=== PATIENT | male | born 1925 | race Caucasian/White ===

== ENCOUNTER → 2016-06-16 | Outpatient (CLI) | payer MEDICARE, OTHER ==
[~2016-06-16] MED LIST: APIX2.5T PO; CARV12.5 PO; CARV25TA PO; ESZO1TAB PO; ESZO2 PO; FISH1000 PO; FLOV110A INH; FURO1TAB93 PO; FURO20TA PO; ISOS20TA PO; LOSA25TA PO; LOSA50 PO; OCUVTAB4 PO; PRAV10 PO; PRAV10TA PO; PRESCAP5 PO; RIVA15 PO; SPIR25 PO; TAMS0.4C4 PO; UMEC1AER INH
[2016-06-16 12:39] LABS: POTASSIUM 4.7 MEQ/L (3.5-5.1)
== END ==
LOC: CLAB 11:47
PROVIDERS: ATTEND Internal Medicine Cardiovascular Disease
DX: I50.9 Heart failure, unspecified (principal)
CPT/HCPCS: 36415; 80048

== ENCOUNTER → 2016-06-30 | Outpatient (CLI) | payer MEDICARE, OTHER ==
[~2016-06-30] MED LIST changes: +SODIUM BICARBONATE 8.4% INJ 50 MEQ/50 ML SYR IV ONE
[2016-06-30 10:24] LABS: HEMATOCRIT 52.2 % (39.0-51.0); HEMO FLAGS DIFF FINAL; MEAN CELL VOLUME 92.9 FL (80.0-100.0); MEAN CORPUSCULAR HEMOGLOBIN 31.4 PG (27.0-34.0); MEAN CORPUSCULAR HGB CONC 33.8 % (32.0-36.0); PLATELET COUNT 148 TH/MM3 (150-450); RED BLOOD COUNT 5.61 MIL/MM3 (4.50-5.90); RED CELL DISTRIBUTION WIDTH 16.3 % (11.6-17.2); WHITE BLOOD COUNT 5.8 TH/MM3 (4.0-11.0)
[2016-06-30 10:25] LABS: AUTOMATED NEUTROPHIL # 3.6 TH/MM3 (1.8-7.7); BASOPHIL # 0.1 TH/MM3 (0-0.2); BASOPHIL % 1.4 % (0.0-2.0); EOSINOPHIL # 0.3 TH/MM3 (0-0.4); EOSINOPHIL % 5.2 % (0.0-4.0); LYMPH % 17.3 % (9.0-44.0); MONO % 14.1 % (0.0-8.0)
[2016-06-30 10:29] LABS: BLOOD, URINE NEG (NEG); GLUCOSE,URINE NEG (NEG); KETONE, URINE NEG (NEG); NITRITE,URINE NEG (NEG); PH, URINE 5.5 (5.0-8.5); URINE COLOR YELLOW (YELLW/STRAW)
[2016-06-30 10:35] LABS: COMMENT (UR) CULT NOT INDICATED; CULTURE IF INDICATED CULT NOT INDICATED
[2016-06-30 10:54] LABS: ANION GAP 8 MEQ/L (5-15); AST (GOT) 14 U/L (15-37); BLOOD UREA NITROGEN 55 MG/DL (7-18); CHLORIDE 106 MEQ/L (98-107); GLOMERULAR FILTRATION RATE 37 ML/MIN (>89); GLUCOSE,FASTING 96 MG/DL (74-99); POTASSIUM 5.2 MEQ/L (3.5-5.1); SODIUM (NA) 140 MEQ/L (136-145)
[2016-06-30 11:21] LABS: ALKALINE PHOSPHATASE 174 U/L (45-117); ALT (GPT) 24 U/L (12-78); LDL CHOLESTEROL 88 MG/DL (0-99)
[2016-06-30 13:34] LABS: HEMOGLOBIN A1a 1.7 %; HEMOGLOBIN A1b 1.1 %; HEMOGLOBIN Ao 79.3 %; HEMOGLOBIN F 2.9 %; HEMOGLOBIN LA1C 2.6 %; HEMOGLOBIN P3 7.1 %
== END ==
LOC: CLAB 10:01
PROVIDERS: ATTEND Internal Medicine
DX: I10 Essential (primary) hypertension (principal); R73.01 Impaired fasting glucose; E53.8 Deficiency of other specified B group vitamins; E55.9 Vitamin D deficiency, unspecified
CPT/HCPCS: 36415; 80053; 80061; 81001; 82306; 82607; 83036; 84443; 85025

== ENCOUNTER 2016-07-06 13:06 | Inpatient (IN) | payer OTHER, MEDICARE ==
[~2016-07-06] VITALS: Ht 177.8 cm; Wt 90.2 kg
[2016-07-06 13:02] VITALS: O2SAT 94
[~2016-07-06 13:06] MED LIST changes: -APIX2.5T PO; -CARV25TA PO; -ESZO1TAB PO; -FURO20TA PO; -ISOS20TA PO; -LOSA25TA PO; -OCUVTAB4 PO; -PRAV10TA PO; -SODIUM BICARBONATE 8.4% INJ 50 MEQ/50 ML SYR IV ONE; -TAMS0.4C4 PO
[2016-07-06] MEDS ORDERED: MORPHINE SULFATE 8 MG/ML INJ ONE (13:18)
[2016-07-06] MEDS ORDERED: ONDANSETRON HCL 4 MG/2 ML VIAL ONE (13:19)
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
[2016-07-06 13:31] LABS: I-STAT POTASSIUM 5.1 MMOL/L (3.5-4.9)
[2016-07-06 13:32] LABS: AUTOMATED NEUTROPHIL # 4.1 TH/MM3 (1.8-7.7); BASOPHIL # 0.1 TH/MM3 (0-0.2); BASOPHIL % 1.6 % (0.0-2.0); EOSINOPHIL # 0.4 TH/MM3 (0-0.4); HEMATOCRIT 46.3 % (39.0-51.0); HEMO FLAGS DIFF FINAL; LYMPHOCYTE # 1.4 TH/MM3 (1.0-4.8); MEAN CELL VOLUME 92.6 FL (80.0-100.0); MEAN CORPUSCULAR HEMOGLOBIN 31.6 PG (27.0-34.0); MEAN CORPUSCULAR HGB CONC 34.1 % (32.0-36.0); MONO % 15.4 % (0.0-8.0); PLATELET COUNT 151 TH/MM3 (150-450); RED CELL DISTRIBUTION WIDTH 15.9 % (11.6-17.2)
[2016-07-06 13:41] LABS: APTT (PATIENT) 23.1 SEC (24.3-30.1); INTERNATIONAL NORMALIZED RATIO 1.1 RATIO; PROTHROMBIN TIME - PATIENT 11.9 SEC (9.8-11.6)
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
[2016-07-06] MEDS: SODIUM CHLOR 0.9% 1000 ML INJ 1,000 ML IV SCH (14:29)
[2016-07-06] MEDS ORDERED: NALOXONE HCL 0.4 MG/ML AMP IV PRN (14:30)
[2016-07-06] MEDS ORDERED: oxyCODONE/ACETAMINOPHEN 5 MG/325 MG TAB PO PRN (14:30)
[2016-07-06] MEDS ORDERED: SODIUM CHLORIDE 0.9% FLUSH 5 ML FLUSH IVF PRN (14:30)
[2016-07-06] MEDS ORDERED: Post-op Orders (for Pharmacy) MISC XX ONE (14:30)
[2016-07-06] MEDS: HYDROmorphone HCL PF 1 MG/ML VIAL IV PRN ×3 (14:50→21:20)
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
[2016-07-06] MEDS: CARVEDILOL 12.5 MG TAB PO SCH ×2 (15:00→20:50)
[2016-07-06] MEDS ORDERED: PANTOPRAZOLE SOD 40 MG DELAYED RELEASE TAB PO SCH (15:00)
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
[2016-07-06 16:00] VITALS: BP 114/50; PULSE 67; RESP 40; TEMP 96.1; O2SAT 97
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
[2016-07-06] MEDS ORDERED: PANTOPRAZOLE SODIUM 40 MG VIAL IV PUSH SCH (17:00)
[2016-07-06] MEDS ORDERED: LIDOCAINE HCL 2% 100 MG/5 ML SYRINGE ONE (17:28)
[2016-07-06] MEDS ORDERED: EPINEPHrine HCL (1:10,000) 1 MG/10 ML SYRINGE ONE (17:28)
[2016-07-06] MEDS ORDERED: ATROPINE SULFATE 1 MG/10 ML SYRINGE ONE (17:29)
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
[2016-07-06 18:35] VITALS: PULSE 70; RESP 18; O2SAT 94
--- NOTE | 2016-07-06 18:41 | RADRPT ---
EXAM DATE/TIME: 07/06/2016 18:06 [facility] COMPARISON: CT THORACIC SPINE W/O CONTRAST, July 06, 2016, 13:27. INDICATIONS : Trauma. MEDICAL HISTORY : Hypertension. Renal insufficiency. SURGICAL HISTORY : Achilles tendon surgery. ENCOUNTER: Initial ACUITY: 1 day PAIN SCORE: 10/10 LOCATION: Bilateral upper quadrant TECHNIQUE: Multiplanar multisequence MRI of the thoracic spine was performed. FINDINGS: There is mild to moderate dextroconvex curvature of the thoracic spine. No fracture or subluxation. T here are bridging syndesmophytes spanning all intervertebral disc space levels except for T1/T2.. No evidence of syndesmophyte fracture. At T1/T2, the disc is slightly desiccated and has mild loss of he ight. There is also mild reactive-appearing endplate marrow edema. There is mild costovertebral osteoarthritis at essentially all levels. No evidence of foraminal or spinal stenosis at any level. CONCLUSION: 1. No fracture or subluxation of the thoracic spine. 2. Mild degenerative disc disease with reactive-appearing endplate marrow edema at T1/T2. 3. Bridging syndesmophytes from T2/T3 through T12/L1 and mild dextroconvex scoliosis. 4. Mild multilevel costovertebral osteoarthritis. 5. No significant foraminal or spinal stenosis at level. Thoracic cord has normal signal and morpholo gy throughout. Dallas Rios MD on July 06, 2016 at 18:36 Board Certified Radiologist. This report was verified electronically.
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
--- NOTE | 2016-07-06 19:18 | RADRPT ---
EXAM DATE/TIME: 07/06/2016 18:06 [facility] COMPARISON: No previous studies available for comparison. INDICATIONS : Trauma. MEDICAL HISTORY : Hypertension. Renal insufficiency. SURGICAL HISTORY : Achilles tendon surgery. ENCOUNTER: Initial ACUITY: 1 day PAIN SCORE: 10/10 LOCATION: Bilateral neck region. TECHNIQUE: Multiplanar, multisequence MRI examination of the brachial plexus was performed without contrast. FINDINGS: SOFT TISSUES: There is normal signal in the muscular and fatty tissues. No masses are seen. LUNGS: The visualized pulmonary apex is unremarkable. NEUROVASCULAR: The vascular structures of the supraclavicular region are grossly intact. The visualized structures in the region of the brachial plexus nerve roots and trunks are intact without mass or enlargement. BONY STRUCTURES: Please refer to the MRI of the cervical spine which was also just done. This study shows large, presu mably chronic appearing effusions of both sternoclavicular joints. CONCLUSION: No acute abnormality seen of the brachial plexus distal to the roots. There is bilateral foraminal st enosis of the cervical spine from C3/C4 through C6/C7 and please refer to the MRI of the cervical spi ne report which also shows a focal cervical cord contusion at the level of C3/C4 related to an appare nt recent hyperextension injury. Dallas Rios MD on July 06, 2016 at 19:12 Board Certified Radiologist. This report was verified electronically.
--- NOTE | 2016-07-06 19:31 | RADRPT ---
EXAM DATE/TIME: 07/06/2016 18:06 [facility] COMPARISON: MRI CERVICAL SPINE W/O CONTRAST, July 06, 2016, 18:06. MRI BRACHIAL PLEXUS LEFT W/O CONTRAST, [facility] 2016, 18:06. CT LUMBAR SPINE W/O CONTRAST, July 06, 2016, 13:27. CT CERVICAL SPINE W /O CONTRAST, July 06, 2016, 13:25. INDICATIONS : Trauma. MEDICAL HISTORY : Hypertension. Renal insufficiency. SURGICAL HISTORY : Achilles tendon ENCOUNTER: Initial ACUITY: 1 day PAIN SCORE: 10/10 LOCATION: Bilateral neck region. TECHNIQUE: Multiplanar, multisequence MRI examination of the brachial plexus was performed without contrast. FINDINGS: There is degenerative right foraminal stenosis at C3/C4, C4/C5, C5/C6 and C6/C7. There is reactive ap pearing marrow edema of the right facets at C4/C5 and C5/C6. No epidural hematoma. Patient has anteri or longitudinal ligament disruption and a focal cervical cord contusion at the C3/C4 level and please refer to the MRI of the cervical spine report. Trunks, divisions, cords and visualized branches of the right brachial plexus appear normal. CONCLUSION: Distal to the cervical spine the right brachial plexus is within normal limits. Please see above and refer to the MRI report for cervical spine findings. Dallas Rios MD on July 06, 2016 at 19:25 Board Certified Radiologist. This report was verified electronically.
[2016-07-06 20:00] VITALS: BP 107/51; PULSE 78; RESP 33; TEMP 98.9; O2SAT 94
[2016-07-06] MEDS ORDERED: OCUVTAB4 PO (20:40)
[2016-07-06] MEDS ORDERED: FURO20TA PO (20:40)
[2016-07-06] MEDS ORDERED: ISOS20TA PO (20:40)
[2016-07-06] MEDS ORDERED: ESZO1TAB PO (20:42)
[2016-07-06] MEDS ORDERED: CARV25TA PO (20:42)
[2016-07-06] MEDS ORDERED: PRAV10TA PO (20:42)
[2016-07-06] MEDS ORDERED: LOSA25TA PO (20:42)
[2016-07-06] MEDS ORDERED: TAMS0.4C4 PO (20:42)
[2016-07-06] MEDS ORDERED: APIX2.5T PO (20:42)
[2016-07-06] MEDS ORDERED: DOCUSATE SODIUM 100 MG CAP PO SCH (21:00)
[2016-07-06] MEDS: MAGNESIUM HYDROXIDE SUSP 30 ML CUP PO SCH ×2 (21:00→21:05)
[2016-07-06] MEDS: SODIUM CHLORIDE 0.9% FLUSH 5 ML FLUSH IVF SCH (21:00)
[2016-07-06] MEDS: FAMOTIDINE 20 MG TAB PO SCH (21:05)
[2016-07-06] MEDS ORDERED: diphenhydrAMINE HCL 50 MG/ML VIAL IV ONE (23:00)
[2016-07-07] VITALS (14 sets, daily range): BP systolic 107–140; BP diastolic 36–63; PULSE 66–90; RESP 16–24; TEMP 98.3–98.8; O2SAT 93–98
[2016-07-07] MEDS: SODIUM CHLOR 0.9% 1000 ML INJ 1,000 ML IV SCH ×3 (00:29→20:29)
[2016-07-07] MEDS: HYDROmorphone HCL PF 1 MG/ML VIAL IV PRN (04:51)
[2016-07-07 05:51] LABS: HEMATOCRIT 44.8 % (39.0-51.0); MEAN CELL VOLUME 94.3 FL (80.0-100.0); MEAN CORPUSCULAR HEMOGLOBIN 31.5 PG (27.0-34.0); MEAN CORPUSCULAR HGB CONC 33.4 % (32.0-36.0); PLATELET COUNT 123 TH/MM3 (150-450); RED BLOOD COUNT 4.74 MIL/MM3 (4.50-5.90); RED CELL DISTRIBUTION WIDTH 15.9 % (11.6-17.2); REVIEW FLAG FINAL; WHITE BLOOD COUNT 9.7 TH/MM3 (4.0-11.0)
[2016-07-07 05:53] LABS: BICARBONATE 24.3 MEQ/L (21.0-32.0); MAGNESIUM 2.1 MG/DL (1.5-2.5); POTASSIUM 5.3 MEQ/L (3.5-5.1)
[2016-07-07] MEDS: ISOSORBIDE MONONITRATE 30 MG TAB PO SCH (07:00)
[2016-07-07] MEDS ORDERED: VANCOMYCIN HCL 1000 MG VIAL ONE (07:14)
[2016-07-07] MEDS ORDERED: MICROFIBRILLAR COLLAGEN HEMOSTAT 70 X 35 MM BANDAGE ONE (07:14)
[2016-07-07] MEDS ORDERED: ceFAZolin 2 GM PREMIX 50 ML ONE (07:14)
[2016-07-07] MEDS ORDERED: THROMBIN (TOPICAL) 5,000 UNIT VIAL ONE (07:14)
[2016-07-07] MEDS ORDERED: SODIUM CHLOR 0.9% 250 ML INJ 250 ML ONE (07:15)
[2016-07-07] MEDS ORDERED: GENTAMICIN SULFATE 80 MG/2 ML VIAL ONE (07:15)
[2016-07-07] MEDS ORDERED: GELFOAM SIZE 100 ONE (07:15)
[2016-07-07] MEDS: TAMSULOSIN HCL 0.4 MG CAP PO SCH (08:31)
[2016-07-07] MEDS: SODIUM CHLORIDE 0.9% FLUSH 5 ML FLUSH IVF SCH (08:31)
[2016-07-07] MEDS: PRAVASTATIN SOD 10 MG TAB PO SCH (08:32)
[2016-07-07] MEDS ORDERED: LOSARTAN 25 MG TAB PO SCH (09:00)
[2016-07-07] MEDS: CARVEDILOL 12.5 MG TAB PO SCH ×3 (09:00→22:04)
[2016-07-07] MEDS ORDERED: DOCUSATE SODIUM 50 MG/SENNA 8.6 MG TAB PO SCH (09:00)
[2016-07-07] MEDS ORDERED: FUROSEMIDE 20 MG TAB PO SCH (09:00)
[2016-07-07] MEDS ORDERED: PROTHROMBIN COMPLEX CONC INJ 2,000 UNITS in SYRINGE/BAG 1 EA IV ONE (09:30)
[2016-07-07] MEDS ORDERED: PHYTONADIONE 10 MG/ML VIAL SQ ONE (09:30)
[2016-07-07] MEDS ORDERED: ARTIFICIAL TEARS OPTH OINT 3.5 APPLIC/3.5 GM TUBO ONE (11:14)
[2016-07-07] MEDS ORDERED: ACETAMINOPHEN 1000 MG/100 ML VIAL IV ONE (11:14)
[2016-07-07] MEDS ORDERED: BISACODYL 10 MG SUPP PR PRN (11:30)
[2016-07-07] MEDS ORDERED: ACETAMINOPHEN 325 MG TAB PO PRN (11:30)
[2016-07-07] MEDS ORDERED: ACETAMINOPHEN/HYDROcodone 325 MG/10 MG TAB PO PRN ×2 (11:30)
[2016-07-07] MEDS ORDERED: ONDANSETRON HCL 4 MG/2 ML VIAL IV PRN (11:30)
[2016-07-07] MEDS ORDERED: SODIUM CHLORIDE 0.9% FLUSH 5 ML FLUSH IVF PRN (11:30)
[2016-07-07] MEDS ORDERED: MENTHOL LOZENGE SUCK-ON PRN (11:30)
[2016-07-07] MEDS ORDERED: CYCLOBENZAPRINE HCL 10 MG TAB PO PRN (11:30)
[2016-07-07] MEDS ORDERED: ONDANSETRON HCL 4 MG/2 ML VIAL IV PUSH ONE (12:00)
[2016-07-07] MEDS ORDERED: PHENYLEPH/NS 1000 MCG/10 ML SYR IV ONE ×2 (12:00)
[2016-07-07] MEDS ORDERED: PHENYLEPHRINE HCL 10 MG/ML VIAL IV ONE (12:00)
[2016-07-07] MEDS ORDERED: PROPOFOL 200 MG/20 ML AMP IV ONE (12:00)
[2016-07-07] MEDS: DEXAMETHASONE SOD PHOS 4 MG/ML VIAL IV SCH ×3 (12:00→23:21)
[2016-07-07] MEDS ORDERED: NEOSTIGMINE 3 MG/3 ML SYR IV ONE (12:00)
[2016-07-07] MEDS ORDERED: SODIUM CHLOR 0.9% 250 ML INJ 250 ML IV ONE (12:00)
[2016-07-07] MEDS ORDERED: KETAMINE HCL 500 MG/5 ML VIAL ONE (12:37)
--- NOTE | 2016-07-07 13:45 | EKG ---
Date Performed: 07/06/2016 Time Performed: 20:45:19 PTAGE: 89 years EKG: ATRIAL FIBRILLATION MARKED LEFT AXIS DEVIATION NONSPECIFIC T-WAVE ABNORMALITY ABNORMAL ECG NO PREVIOUS TRACING DOCTOR: Lashonda Stewart Interpretating Date/Time 07/07/2016 13:36:56
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
[2016-07-07] MEDS ORDERED: MIDAZOLAM HCL 2 MG/2 ML VIAL ONE ×2 (14:22→15:42)
[2016-07-07] MEDS ORDERED: fentaNYL CITRATE 250 MCG/5 ML AMP ONE (14:22)
[2016-07-07] MEDS ORDERED: *morphine SULFATE 8 MG/ML PERIprocedure ONLY ONE ×2 (14:26→14:37)
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
[2016-07-07] MEDS ORDERED: *RESP: ALBUTEROL 2.5 MG/3 ML NEB (PRN) PERIprocedural Use ONLY NEB ONE (14:47)
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
[2016-07-07] MEDS ORDERED: DO NOT ADM ANY ANTICOAGULANT DRUGS XX PRN (15:00)
[2016-07-07] MEDS ORDERED: RESP: ALBUTEROL 2.5 MG/IPRATROPIUM 0.5 MG NEB (PRN) INH (16:15)
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
[2016-07-07] MEDS: ceFAZolin 2 GM PREMIX 50 ML IV SCH ×2 (16:57→23:20)
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
[2016-07-07] MEDS ORDERED: TERBUTALINE INJ 1 MG/ML AMP SQ PRN (17:30)
[2016-07-07] MEDS ORDERED: SODIUM CHLOR 0.9% 1000 ML INJ 1,000 ML IV ONE (18:00)
--- NOTE | 2016-07-07 18:01 | RADRPT ---
EXAM DATE/TIME: 07/07/2016 17:26 [facility] COMPARISON: CHEST SINGLE AP, July 06, 2016, 13:00. INDICATIONS : Status post intubation. MEDICAL HISTORY : None. SURGICAL HISTORY : None. ENCOUNTER: Subsequent ACUITY: 1 day PAIN SCORE: Non-responsive. LOCATION: chest FINDINGS: The cardiac silhouette is enlarged in transverse diameter. Endotracheal tube is in good position abov e the kavita. There is left lower lobe atelectasis versus pneumonia. The right lung is free of acute parenchymal opacity. A small left sided effusion is present. CONCLUSION: 1. Satisfactory position of endotracheal tube as above. 2. Left lower lobe atelectasis versus pneumonia. This is new when compared with the prior exam. Cardi [place] Alvarado Huertas MD on July 07, 2016 at 17:59 Board Certified Radiologist. This report was verified electronically.
[2016-07-07] MEDS: PROPOFOL 1000 MG/100 ML INJ 100 ML IV SCH (18:34)
[2016-07-07] MEDS: CHLORHEXIDINE 0.12% (ORAL KIT) 15 ML CUP MT SCH (20:00)
[2016-07-07] MEDS ORDERED: SODIUM CHLORIDE 0.9% FLUSH 5 ML FLUSH IVF SCH (21:00)
[2016-07-07] MEDS: SODIUM CHLORIDE 0.9% FLUSH 5 ML FLUSH IV FLUSH SCH (21:00)
[2016-07-07] MEDS: DOCUSATE SODIUM 100 MG CAP PO SCH ×2 (21:00→22:04)
[2016-07-07] MEDS: FAMOTIDINE 20 MG TAB PO SCH ×2 (21:00→22:05)
[2016-07-07] MEDS: MAGNESIUM HYDROXIDE SUSP 30 ML CUP PO SCH ×2 (21:00→22:04)
[2016-07-07] MEDS: RESP: ALBUTEROL 2.5 MG/IPRATROPIUM 0.5 MG NEB (SCH) INH (22:00)
[2016-07-08] VITALS (21 sets, daily range): BP systolic 128–151; BP diastolic 36–64; PULSE 68–84; RESP 13–18; TEMP 97.5–98.3; O2SAT 94–99
[2016-07-08] MEDS: RESP: ALBUTEROL 2.5 MG/IPRATROPIUM 0.5 MG NEB (SCH) INH ×4 (03:06→21:08)
[2016-07-08] MEDS: MORPHINE SULFATE 4 MG/ML INJ IV PUSH PRN ×5 (03:24→20:56)
[2016-07-08 04:50] LABS: AUTOMATED NEUTROPHIL # 8.2 TH/MM3 (1.8-7.7); BASOPHIL % 0.1 % (0.0-2.0); HEMATOCRIT 45.5 % (39.0-51.0); HEMO FLAGS DIFF FINAL; LYMPH % 3.7 % (9.0-44.0); LYMPHOCYTE # 0.3 TH/MM3 (1.0-4.8); MEAN CORPUSCULAR HEMOGLOBIN 31.9 PG (27.0-34.0); MEAN CORPUSCULAR HGB CONC 33.9 % (32.0-36.0); MONO % 6.1 % (0.0-8.0); NEUT % 90.1 % (16.0-70.0); PLATELET COUNT 107 TH/MM3 (150-450); RED BLOOD COUNT 4.84 MIL/MM3 (4.50-5.90); RED CELL DISTRIBUTION WIDTH 16.2 % (11.6-17.2); WHITE BLOOD COUNT 9.1 TH/MM3 (4.0-11.0)
[2016-07-08 05:10] LABS: ALT (GPT) 19 U/L (12-78); ANION GAP 8 MEQ/L (5-15); AST (GOT) 16 U/L (15-37); BLOOD UREA NITROGEN 37 MG/DL (7-18); CHLORIDE 112 MEQ/L (98-107); GLOMERULAR FILTRATION RATE 52 ML/MIN (>89); MAGNESIUM 2.1 MG/DL (1.5-2.5); POTASSIUM 4.9 MEQ/L (3.5-5.1); SODIUM (NA) 142 MEQ/L (136-145)
--- NOTE | 2016-07-08 05:10 | RADRPT ---
EXAM DATE/TIME: 07/08/2016 04:03 [facility] COMPARISON: CHEST SINGLE AP, July 07, 2016, 17:26. INDICATIONS : Shortness of breath. MEDICAL HISTORY : Hypertension. SURGICAL HISTORY : None. ENCOUNTER: Subsequent ACUITY: 3 days PAIN SCORE: Non-responsive. LOCATION: Bilateral chest FINDINGS: Portable AP views of the chest demonstrate stable enlargement of the cardiac silhouette. ETT remains present. Lungs are underinflated and there is stable left basilar pleural-parenchymal opacity. No pne umothorax is visualized. CONCLUSION: 1. Stable chest x-ray with left basilar opacity which could represent atelectasis, consolidation, and /or pleural effusion. 2. Stable mild enlargement of the cardiac silhouette. Dallas Garrido MD on July 08, 2016 at 5:08 Board Certified Radiologist. This report was verified electronically.
[2016-07-08 05:12] LABS: ALKALINE PHOSPHATASE 120 U/L (45-117); TOTAL BILIRUBIN ADULT 0.7 MG/DL (0.2-1.0)
[2016-07-08] MEDS: DEXAMETHASONE SOD PHOS 4 MG/ML VIAL IV SCH ×4 (05:22→23:06)
[2016-07-08] MEDS: SODIUM CHLOR 0.9% 1000 ML INJ 1,000 ML IV SCH ×2 (05:23→13:52)
[2016-07-08] MEDS: ISOSORBIDE MONONITRATE 30 MG TAB PO SCH (05:58)
[2016-07-08] MEDS: ceFAZolin 2 GM PREMIX 50 ML IV SCH (06:01)
[2016-07-08] MEDS: TAMSULOSIN HCL 0.4 MG CAP PO SCH (08:19)
[2016-07-08] MEDS: CHLORHEXIDINE 0.12% (ORAL KIT) 15 ML CUP MT SCH ×2 (08:19→20:19)
[2016-07-08] MEDS: SODIUM CHLORIDE 0.9% FLUSH 5 ML FLUSH IV FLUSH SCH ×2 (08:19→20:19)
[2016-07-08] MEDS: DOCUSATE SODIUM 100 MG CAP PO SCH ×2 (09:00→20:19)
[2016-07-08] MEDS: PRAVASTATIN SOD 10 MG TAB PO SCH (09:00)
[2016-07-08] MEDS: CARVEDILOL 12.5 MG TAB PO SCH ×2 (09:00→20:19)
[2016-07-08] MEDS ORDERED: PANTOPRAZOLE SOD 40 MG DELAYED RELEASE TAB PO SCH (09:00)
[2016-07-08] MEDS: PROPOFOL 1000 MG/100 ML INJ 100 ML IV SCH ×2 (09:34→15:51)
--- NOTE | 2016-07-08 10:46 | EC ---
Study Study Date:07/08/2016 STUDY CONCLUSIONS SUMMARY - Left ventricle: The cavity size was normal. Wall thickness was normal. Systolic function was normal. The estimated ejection fraction was in the range of 50% to 55%. Wall motion was normal; there were no regional wall motion abnormalities. - Aortic valve: Mild regurgitation. Valve area: 1.89cm^2(VTI). Valve area: 2.03cm^2 (Vmax). - Aorta: The aorta was moderately dilated. - Mitral valve: Mild regurgitation. - Left atrium: The atrium was mildly dilated. - Tricuspid valve: Mild regurgitation. - Pulmonary arteries: PA peak pressure: 40mm Hg (S). If LV function is below 40, please consider prescribing an ACEI or ARB or document rationale for non-use. PROCEDURE DATA STUDY STATUS: Elective. Procedure: Transthoracic echocardiography. Image quality was good. Scanning was performed from the parasternal, apical, and subcostal acoustic windows. Results called to Dr. Mendoza. Study completion: The patient tolerated the procedure well. Transthoracic echocardiography. M-mode, complete 2D, complete spectral Doppler, and color Doppler. Height: Height: 70in. Weight: Weight: 175.6lb. Body mass index: BMI: 25.3kg/m^2. Body surface area: BSA: 1.98m^2. Patient status: Inpatient. CARDIAC ANATOMY LEFT VENTRICLE: The cavity size was normal. Wall thickness was normal. Systolic function was normal. The estimated ejection fraction was in the range of 50% to 55%. Wall motion was normal; there were no regional wall motion abnormalities. AORTIC VALVE: Mildly thickened, mildly calcified leaflets. Doppler: Transvalvular velocity was within the normal range. There was no stenosis. Mild regurgitation. Valve area: 1.89cm^2(VTI). Indexed valve area: 0.95cm^2/m^2 (VTI). Valve area: 2.03cm^2 (Vmax). Indexed valve area: 1.03cm^2/m^2 (Vmax). Mean gradient: 3mm Hg (S). AORTA: The aorta was moderately dilated. Aortic root: The aortic root was normal in size. MITRAL VALVE: Structurally normal valve. Doppler: Transvalvular velocity was within the normal range. There was no evidence for stenosis. Mild regurgitation. Peak gradient: 2mm Hg (D). LEFT ATRIUM: The atrium was mildly dilated. RIGHT VENTRICLE: The cavity size was normal. Wall thickness was normal. PULMONIC VALVE: Poorly visualized. Doppler: Transvalvular velocity was within the normal range. There was no evidence for stenosis. No regurgitation. TRICUSPID VALVE: Structurally normal valve. Doppler: Transvalvular velocity was within the normal range. Mild regurgitation. PULMONARY ARTERY: The main pulmonary artery was normal-sized. Systolic pressure was within the normal range. RIGHT ATRIUM: The atrium was normal in size. PERICARDIUM: There was no pericardial effusion. SYSTEMIC VEINS: Inferior vena cava: The vessel was dilated. Patient weight: 175.6lb _Ejection fraction:_ 65-75% _Fractional shortening:_ 32% up to 5Kg 5-11.5Kg 11.6-22.9Kg 23-45Kg 45-57Kg Aortic Root 7-13 <17 13-22 17-27 17-27 LA diam 6-13 <23 24-38 33-47 37-40 RVID 10-17 7-15 7-15 7-18 8-17 LVIDd 12-22 <32 24-38 33-47 37-40 LVPW 2-4 3-6 5-7 6-8 7-8 IVS 2-4 3-6 5-7 6-8 7-8 BASIC MEASUREMENTS ADULT NORMAL Left ventricle LV internal dimension, ED, chordal *60.1 mm 43-52 level, PLAX LV internal dimension, ES, chordal *48.9 mm 23-38 level, PLAX Fractional shortening, chordal level, *19 % >29 PLAX LV posterior wall thickness, ED 10.8 mm IVS/LVPW ratio, ED 1 <1.3 Ventricular septum Septal thickness, ED 10.8 mm Aortic valve Leaflet separation 22 mm 15-26 Aorta Root diameter, ED 52 mm Left atrium Anterior-posterior dimension 24 mm Anterior-posterior dimension index 1.21 cm/m^2 <2.2 BASIC MEASUREMENTS ADULT NORMAL Aortic valve Leaflet separation 22 mm 15-26 DOPPLER MEASUREMENTS ADULT NORMAL Main pulmonary artery Pressure, S *40 mm Hg =30 Aortic valve Peak velocity, S 127 cm/s Mean velocity, S 81.8 cm/s VTI, S 28.4 cm Mean gradient, S 3 mm Hg Valve area, VTI 1.89 cm^2 Valve area index, VTI 0.95 cm^2/m^2 Valve area, Vmax 2.03 cm^2 Valve area index, Vmax 1.03 cm^2/m^2 Mitral valve Peak E-wave velocity 74.6 cm/s Deceleration time 198 ms 150-230 Peak gradient, D 2 mm Hg Tricuspid valve Regurgitant peak velocity 227 cm/s Peak RV-RA gradient, S 21 mm Hg Maximal regurgitant velocity 227 cm/s Right ventricle RV pressure, S *41 mm Hg <30 Pulmonic valve Peak velocity, S 36.1 cm/s LEGEND: Mean values are shown as u=mean value. Asterisk (*) pérez values outside specified normal range. Prepared and signed by Fred El [id number]
[2016-07-08] MEDS ORDERED: LIDOCAINE HCL 2% 100 MG/5 ML SYRINGE ONE (11:09)
[2016-07-08] MEDS ORDERED: EPINEPHrine HCL (1:10,000) 1 MG/10 ML SYRINGE ONE (11:09)
[2016-07-08] MEDS ORDERED: ATROPINE SULFATE 1 MG/10 ML SYRINGE ONE (11:10)
--- NOTE | 2016-07-08 11:19 | PD.CARD.PN ---
Subjective Subjective Remarks Intubated and unresponsibe Objective Medications Administered Medications Medications (Trade) Dose Ordered Sig/Enmanuel Route PRN Reason Start Time Stop Time Status Last Admin Dose Admin Sodium Chloride (NS 1000 ml Inj) 1,000 ml @ 100 mls/hr Q10H IV 07/06/16 14:29 07/08/16 05:23 Carvedilol (Coreg) 12.5 mg Q12HR PO 07/06/16 15:00 07/06/16 20:50 Famotidine (Pepcid) 20 mg HS PO 07/06/16 21:00 07/06/16 21:05 Morphine Sulfate (Morphine Inj) 2 mg Q2H PRN IV PUSH PAIN SCALE 1 TO 6 07/07/16 11:30 07/08/16 03:24 Morphine Sulfate (Morphine Inj) 4 mg Q2H PRN IV PUSH PAIN SCALE 7 TO 10 07/07/16 11:30 07/08/16 05:22 Dexamethasone Sodium Phosphate 4 mg 4 mg Q6H IV 07/07/16 12:00 07/08/16 05:22 Propofol (Diprivan 1000 Mg/100ml Inj) 100 ml @ 0 mls/hr TITRATE IV 07/07/16 16:15 07/08/16 09:34 Chlorhexidine Gluconate (Peridex 0.12% Liq) 15 ml BID@08,20 MT 07/07/16 20:00 07/08/16 08:19 IV Flush (NS Flush) 2 ml BID IV FLUSH 07/07/16 21:00 07/08/16 08:19 Vital Signs / I&O Vital Signs Date Time Temp Pulse Resp B/P Pulse Ox O2 Delivery O2 Flow Rate FiO2 07/08/16 07:30 99 50 07/08/16 06:00 69 07/08/16 04:00 98.0 73 16 142/63 97 134/36 07/08/16 04:00 73 07/08/16 04:00 50 07/08/16 03:12 97 50 07/08/16 03:00 50 07/08/16 02:00 70 07/08/16 00:00 72 07/08/16 00:00 97.7 72 18 141/63 96 130/36 07/07/16 23:26 97 60 07/07/16 22:00 69 07/07/16 22:00 60 07/07/16 20:00 100 07/07/16 20:00 74 07/07/16 20:00 98.5 71 16 140/63 97 130/36 07/07/16 19:48 97 80 07/07/16 19:00 Mechanical Ventilator 07/07/16 18:00 66 07/07/16 16:00 98.8 82 16 137/63 97 07/07/16 16:00 100 07/07/16 16:00 98 07/07/16 16:00 72 07/07/16 15:55 96 100 07/07/16 15:45 82 12 132/42 98 Ambu Bag 100 07/07/16 15:30 87 13 115/29 97 Bi-Pap 45 07/07/16 15:15 86 14 117/28 97 Bi-Pap 45 07/07/16 15:00 83 13 114/24 95 Bi-Pap 45 07/07/16 15:00 97 45 07/07/16 14:45 80 12 104/26 95 Simple Mask 10 07/07/16 14:30 102 13 112/33 95 Nasal Cannula 4 07/07/16 14:15 79 14 101/41 98 Nasal Cannula 4 07/07/16 14:07 98.8 78 12 94/42 98 Nasal Cannula 4 I/O 07/07/16 07/07/16 07/07/16 07/08/16 07/08/16 07/08/16 06:59 14:59 22:59 06:59 14:59 22:59 Intake Total 804 ml 1600 ml 2250 ml 730 ml Output Total 350 ml 730 ml 310 ml 260 ml Balance 454 ml 870 ml 1940 ml 470 ml Intake Oral 0 ml 0 ml IV Total 804 ml 500 ml 2250 ml 730 ml Other 1100 ml Output Urine Total 350 ml 400 ml 300 ml 250 ml Drainage Total 10 ml 10 ml Estimated Blood Loss 30 ml Other 300 ml # Bowel Movements 0 0 0 Physical Exam GENERAL: Intubated Well-nourished, well-developed patient in no apparent distress. SKIN: Warm and dry. NECK: JVD normal - less than or equal to 5 cm H20. CARDIOVASCULAR: Regular rate and rhythm without murmurs, gallops or rubs. RESPIRATORY: Normal breath sounds - equal bilaterally. No accessory muscle use. No wheezes, rales or rubs. PERIPHERY: No cyanosis or edema. 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 better Laboratory Laboratory Tests Test 07/08/16 04:04 White Blood Count 9.1 TH/MM3 Red Blood Count 4.84 MIL/MM3 Hemoglobin 15.4 GM/DL Hematocrit 45.5 % Mean Corpuscular Volume 94.0 FL Mean Corpuscular Hemoglobin 31.9 PG Mean Corpuscular Hemoglobin 33.9 % Concent Red Cell Distribution Width 16.2 % Platelet Count 107 TH/MM3 Mean Platelet Volume 8.8 FL Neutrophils (%) (Auto) 90.1 % Lymphocytes (%) (Auto) 3.7 % Monocytes (%) (Auto) 6.1 % Eosinophils (%) (Auto) 0.0 % Basophils (%) (Auto) 0.1 % Neutrophils # (Auto) 8.2 TH/MM3 Lymphocytes # (Auto) 0.3 TH/MM3 Monocytes # (Auto) 0.6 TH/MM3 Eosinophils # (Auto) 0.0 TH/MM3 Basophils # (Auto) 0.0 TH/MM3 CBC Comment DIFF FINAL Differential Comment Sodium Level 142 MEQ/L Potassium Level 4.9 MEQ/L Chloride Level 112 MEQ/L Carbon Dioxide Level 22.0 MEQ/L Anion Gap 8 MEQ/L Blood Urea Nitrogen 37 MG/DL Creatinine 1.30 MG/DL Estimat Glomerular Filtration 52 ML/MIN Rate Random Glucose 130 MG/DL Calcium Level 8.4 MG/DL Phosphorus Level 2.8 MG/DL Magnesium Level 2.1 MG/DL Total Bilirubin 0.7 MG/DL Aspartate Amino Transf 16 U/L (AST/SGOT) Alanine Aminotransferase 19 U/L (ALT/SGPT) Alkaline Phosphatase 120 U/L Total Protein 6.2 GM/DL Albumin 2.9 GM/DL Imaging Last 48 hours Impressions Chest X-Ray 07/08/16 0500 Signed Impressions: Service Date/Time: Friday, July 08, 2016 04:03 - CONCLUSION: 1. Stable chest x-ray with left basilar opacity which could represent atelectasis, consolidation, and/or pleural effusion. 2. Stable mild enlargement of the cardiac silhouette. Dallas Garrido MD Chest X-Ray 07/07/16 0000 Signed Impressions: Service Date/Time: Thursday, July 07, 2016 17:26 - CONCLUSION: 1. Satisfactory position of endotracheal tube as above. 2. Left lower lobe atelectasis versus pneumonia. This is new when compared with the prior exam. Cardiomegaly Alvarado Huertas MD Thoracic Spine CT 07/06/161310 Signed Impressions: Service Date/Time: July 13:27 - CONCLUSION: 1. No evidence of fracture. 2. Bridging osteophytes or syndesmophytes at every level of the thoracic spine indicating either degenerative changes or spondyloarthropathy such as ankylosing spondylitis. 3. Central canal diameter within normal limits at all levels. Tr Miller MD Pelvis X-Ray 07/06/161310 Signed Impressions: Service Date/Time: July 13:00 - CONCLUSION: There is no evidence of acute fracture. Alvarado Huertas MD Lumbar Spine CT 07/06/161310 Signed Impressions: Service Date/Time: July 13:27 - CONCLUSION: 1. Advanced multilevel degenerative changes as described above.. 2. No fracture or subluxation. Carlos Wells MD Head CT 07/06/161310 Signed Impressions: Service Date/Time: July 13:20 - CONCLUSION: Maxillary, sphenoid, and ethmoid sinus opacification. No acute intracranial findings. Tr Miller MD Chest X-Ray 07/06/161310 Signed Impressions: Service Date/Time: July 13:00 - CONCLUSION: 1. Cardiomegaly. No acute pulmonary disease. Alvarado Huertas MD Chest CT 07/06/161310 Signed Impressions: Service Date/Time: July 13:27 - CONCLUSION: Mild airspace disease left lower lobe. Cardiomegaly with evidence of calcific coronary artery disease. No other evidence of acute process. Arthur Martinez MD Cervical Spine CT 07/06/161310 Signed Impressions: Service Date/Time: July 13:25 - CONCLUSION: No evidence of acute bony or soft tissue trauma. Degenerative disc disease with spondylosis. Mild to moderate facet arthropathy.. Arthur Martinez MD Abdomen/Pelvis CT 07/06/161310 Signed Impressions: Service Date/Time: July 13:27 - CONCLUSION: No evidence of acute soft tissue or bony trauma. Bilateral renal cysts. Colonic diverticulosis without evidence of active inflammatory disease. 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 Arthur Martinez MD Last 24 hours Impressions Chest X-Ray 07/08/16 0500 Signed Impressions: Service Date/Time: Friday, July 08, 2016 04:03 - CONCLUSION: 1. Stable chest x-ray with left basilar opacity which could represent atelectasis, consolidation, and/or pleural effusion. 2. Stable mild enlargement of the cardiac silhouette. Dallas Garrido MD Assessment and Plan Assessment and Plan Overall stable CV had good neck surgery, hopefully will recover some of his neurological function Kylie Leonard MD Jul 08, 2016 11:19
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
[2016-07-08] MEDS: ENOXAPARIN SODIUM 30 MG/0.3 ML SYRINGE SQ SCH (15:51)
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
[2016-07-08] MEDS: MAGNESIUM HYDROXIDE SUSP 30 ML CUP PO SCH (20:19)
[2016-07-08] MEDS: FAMOTIDINE 20 MG TAB PO SCH (20:20)
[2016-07-09] VITALS (17 sets, daily range): BP systolic 104–147; BP diastolic 40–62; PULSE 78–109; RESP 16–22; TEMP 98.3–98.8; O2SAT 91–95
[2016-07-09] MEDS: MORPHINE SULFATE 4 MG/ML INJ IV PUSH PRN ×2 (00:10→04:48)
[2016-07-09] MEDS: ENOXAPARIN SODIUM 30 MG/0.3 ML SYRINGE SQ SCH ×2 (02:36→15:41)
[2016-07-09] MEDS: SODIUM CHLOR 0.9% 1000 ML INJ 1,000 ML IV SCH ×3 (02:37→23:41)
[2016-07-09 04:26] LABS: AUTOMATED NEUTROPHIL # 4.7 TH/MM3 (1.8-7.7); BASOPHIL % 0.1 % (0.0-2.0); HEMATOCRIT 46.6 % (39.0-51.0); LYMPH % 3.1 % (9.0-44.0); LYMPHOCYTE # 0.2 TH/MM3 (1.0-4.8); MEAN CORPUSCULAR HEMOGLOBIN 31.8 PG (27.0-34.0); MEAN CORPUSCULAR HGB CONC 33.9 % (32.0-36.0); MONO % 10.1 % (0.0-8.0); NEUT % 86.7 % (16.0-70.0); PLATELET COUNT 112 TH/MM3 (150-450); RED BLOOD COUNT 4.96 MIL/MM3 (4.50-5.90); RED CELL DISTRIBUTION WIDTH 16.5 % (11.6-17.2); WHITE BLOOD COUNT 5.4 TH/MM3 (4.0-11.0)
[2016-07-09 04:28] LABS: HEMO FLAGS AUTO DIFF
[2016-07-09 04:41] LABS: ALT (GPT) 12 U/L (12-78); ANION GAP 8 MEQ/L (5-15); AST (GOT) 14 U/L (15-37); BICARBONATE 20.6 MEQ/L (21.0-32.0); BLOOD UREA NITROGEN 45 MG/DL (7-18); CHLORIDE 115 MEQ/L (98-107); GLOMERULAR FILTRATION RATE 57 ML/MIN (>89); POTASSIUM 4.2 MEQ/L (3.5-5.1); SODIUM (NA) 144 MEQ/L (136-145)
[2016-07-09] MEDS: RESP: ALBUTEROL 2.5 MG/IPRATROPIUM 0.5 MG NEB (SCH) INH ×4 (04:43→20:12)
[2016-07-09 04:44] LABS: ALKALINE PHOSPHATASE 104 U/L (45-117); TOTAL BILIRUBIN ADULT 0.7 MG/DL (0.2-1.0)
[2016-07-09] MEDS: DEXAMETHASONE SOD PHOS 4 MG/ML VIAL IV SCH ×4 (05:14→23:41)
[2016-07-09] MEDS: ISOSORBIDE MONONITRATE 30 MG TAB PO SCH (05:14)
--- NOTE | 2016-07-09 06:37 | RADRPT ---
EXAM DATE/TIME: 07/09/2016 05:40 [facility] COMPARISON: CHEST SINGLE AP, July 08, 2016, 4:03. INDICATIONS : Shortness of breath, possible pulmonary disease. MEDICAL HISTORY : Hypertension. SURGICAL HISTORY : None. ENCOUNTER: Subsequent ACUITY: 4 - 6 days PAIN SCORE: Non-responsive. LOCATION: Bilateral chest FINDINGS: Portable AP view of the chest demonstrate stable mild enlargement of the cardiac silhouette. Endotrac heal tube remains present. Lungs are underinflated and there is persistent airspace consolidation at the left lung base. No pneumothorax is visualized. There is also opacity in the medial right midlung zone. CONCLUSION: 1. Underinflated examination with persistent consolidation at the left lung base and new air space op acity appreciated in the right midlung zone. 2. Stable mild enlargement of the cardiac silhouette. Dallas Garrido MD on July 09, 2016 at 6:34 Board Certified Radiologist. This report was verified electronically.
[2016-07-09] MEDS: CHLORHEXIDINE 0.12% (ORAL KIT) 15 ML CUP MT SCH ×2 (08:00→19:59)
[2016-07-09] MEDS: NOREPINEPHRINE-DEXTROSE DRIP 250 ML IV SCH ×2 (08:02→15:48)
[2016-07-09] MEDS: PROPOFOL 1000 MG/100 ML INJ 100 ML IV SCH ×3 (08:02→17:36)
[2016-07-09] MEDS: DOCUSATE SODIUM 100 MG CAP PO SCH ×2 (08:14→21:00)
[2016-07-09] MEDS: TAMSULOSIN HCL 0.4 MG CAP PO SCH (08:14)
[2016-07-09] MEDS: PRAVASTATIN SOD 10 MG TAB PO SCH (08:14)
[2016-07-09] MEDS: SODIUM CHLORIDE 0.9% FLUSH 5 ML FLUSH IV FLUSH SCH ×2 (08:14→21:16)
[2016-07-09] MEDS: CARVEDILOL 12.5 MG TAB PO SCH ×2 (08:14→21:00)
[2016-07-09 09:29] LABS: BANDS 21 % (0-6); NEUTROPHIL # MANUAL DIFF 4.7 TH/MM3 (1.8-7.7); PLATELET ESTIMATE SMEAR LOW (NORMAL); PLATELET MORPHOLOGY NORMAL (NORMAL); POLYS (SEG NEUTROPHILS) 66 % (16-70); WBC DIFF SAMPLE 100
[2016-07-09 09:30] LABS: SCAN/DIFF FINAL DIFF MANUAL
[2016-07-09] MEDS ORDERED: DEXMEDETOMIDINE INJ 50 ML IV SCH (10:00)
[2016-07-09] MEDS: BISACODYL 10 MG SUPP RECTAL SCH (10:20)
[2016-07-09 11:08] LABS: BLOOD GAS CARBOXYHEMOGLOBIN 0.8 % (0-4); BLOOD GAS HCO3 18 mmol/L (22-26); BLOOD GAS METHEMOGLOBIN 0.9 % (0-2); BLOOD GAS O2 HGB SATURATION 95 % (90-100); BLOOD GAS OXYGEN CONTENT 21.6 Vol % (12.0-20.0); BLOOD GAS PCO2 39 mmHg (38-42); BLOOD GAS PO2 92 mmHg (61-120); BLOOD GAS TOTAL HGB 16.1 G/DL (12.0-16.0); CRITICAL VALUE YES; TEMP CORR TO 98.6
[2016-07-09 11:09] LABS: DRAW SITE ART LINE; FIO2 70 %; OXYGEN DEVICE VENTILATOR; STAT YES; VENT SETTINGS CPAP 5/+5/70%
[2016-07-09] MEDS: PIPERACIL-TAZO 4.5 GM PREMIX 100 ML IV SCH ×3 (11:57→23:41)
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
[2016-07-09] MEDS ORDERED: ROCURONIUM INJ 50 MG/5 ML VIAL ONE (13:11)
[2016-07-09] MEDS ORDERED: ETOMIDATE 20 MG/10 ML VIAL ONE (13:11)
[2016-07-09] MEDS ORDERED: MIDAZOLAM HCL 5 MG/ML VIAL (1 ML) ONE (13:11)
--- NOTE | 2016-07-09 13:28 | PD.PROCEDR ---
Procedure Note Procedure ETT exchange for cuff damage from patient biting through the sdv pilot/navigator/dds operator balloon INTUBATION: The patient was put in optimal position for the procedure. Patient was given 10 mg IV Versed. Inline stabilization was used and fron part of collar removed. GlideScope blade was placed in oropharynx and glottic opening visualized. A bougie was placed through the existing ET tube and the ET tube was removed. New 8.0 ET tube was placed over bougie. Tube placement was confirmed by visualization of the tube and balloon passing through the cords on GlideScope screen, capnometry and subsequent chest x-ray. Breath sounds were equal and well aerated bilaterally postintubation. No breath sounds over stomach. Patient tolerated procedure well. Lavon Haynes MD Jul 09, 2016 13:28
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
--- NOTE | 2016-07-09 13:55 | RADRPT ---
EXAM DATE/TIME: 07/09/2016 13:42 [facility] COMPARISON: CHEST SINGLE AP, July 09, 2016, 5:40. INDICATIONS : Post intubation. MEDICAL HISTORY : Hypertension. SURGICAL HISTORY : None. ENCOUNTER: Initial ACUITY: 1 day PAIN SCORE: Non-responsive. LOCATION: Bilateral chest FINDINGS: A single view of the chest demonstrates cardiomegaly with bilateral perihilar edema. Endotracheal tub e with tip 4 cm above the kavita The cardiomediastinal contours are unremarkable. Osseous structures are intact. CONCLUSION: 1. Cardiomegaly with bilateral perihilar edema. 2. Adequate placement of endotracheal tube. Carlos Wells MD on July 09, 2016 at 13:52 Board Certified Radiologist. This report was verified electronically.
[2016-07-09] MEDS ORDERED: MIDAZOLAM HCL 5 MG/ML VIAL (1 ML) IVP ONE (15:00)
[2016-07-09] MEDS ORDERED: EPINEPHrine HCL (1:10,000) 1 MG/10 ML SYRINGE ONE (15:45)
[2016-07-09] MEDS ORDERED: ATROPINE SULFATE 1 MG/10 ML SYRINGE ONE (15:45)
[2016-07-09] MEDS ORDERED: LIDOCAINE HCL 2% 100 MG/5 ML SYRINGE ONE (15:45)
[2016-07-09 15:51] LABS: BLOOD GAS BASE EXCESS -8.4 mmol/L (-2-2); BLOOD GAS CARBOXYHEMOGLOBIN 0.6 % (0-4); BLOOD GAS HCO3 18 mmol/L (22-26); BLOOD GAS O2 HGB SATURATION 97 % (90-100); BLOOD GAS OXYGEN CONTENT 22.8 Vol % (12.0-20.0); BLOOD GAS PCO2 42 mmHg (38-42); BLOOD GAS PO2 149 mmHg (61-120); BLOOD GAS TOTAL HGB 16.6 G/DL (12.0-16.0); TEMP CORR TO 98.6
[2016-07-09 15:52] LABS: CRITICAL VALUE YES; DRAW SITE ART LINE; FIO2 75 %; OXYGEN DEVICE VENTILATOR; VENT SETTINGS PRVC/16/600/1.0/+12
[2016-07-09 15:53] LABS: STAT NO
[2016-07-09] MEDS ORDERED: SODIUM BICARBONATE 8.4% INJ 50 MEQ/50 ML SYR IV ONE (16:55)
[2016-07-09] MEDS: MAGNESIUM HYDROXIDE SUSP 30 ML CUP PO SCH (21:00)
[2016-07-09] MEDS: FAMOTIDINE 20 MG TAB PO SCH (21:00)
[2016-07-10] VITALS (19 sets, daily range): BP systolic 108–146; BP diastolic 37–64; PULSE 74–108; RESP 20; TEMP 96–99.1; O2SAT 92–100
[2016-07-10] MEDS: MORPHINE SULFATE 4 MG/ML INJ IV PUSH PRN (02:10)
[2016-07-10] MEDS: ENOXAPARIN SODIUM 30 MG/0.3 ML SYRINGE SQ SCH ×2 (02:10→15:43)
[2016-07-10] MEDS: PROPOFOL 1000 MG/100 ML INJ 100 ML IV SCH ×4 (02:20→21:01)
[2016-07-10] MEDS: RESP: ALBUTEROL 2.5 MG/IPRATROPIUM 0.5 MG NEB (SCH) INH ×4 (04:06→21:50)
[2016-07-10 04:16] LABS: AUTOMATED NEUTROPHIL # 7.9 TH/MM3 (1.8-7.7); HEMATOCRIT 47.6 % (39.0-51.0); LYMPH % 2.5 % (9.0-44.0); LYMPHOCYTE # 0.2 TH/MM3 (1.0-4.8); MEAN CELL VOLUME 93.7 FL (80.0-100.0); MEAN CORPUSCULAR HEMOGLOBIN 31.7 PG (27.0-34.0); MEAN CORPUSCULAR HGB CONC 33.8 % (32.0-36.0); MONO % 12.3 % (0.0-8.0); NEUT % 85.2 % (16.0-70.0); PLATELET COUNT 113 TH/MM3 (150-450); RED BLOOD COUNT 5.08 MIL/MM3 (4.50-5.90); RED CELL DISTRIBUTION WIDTH 16.2 % (11.6-17.2); WHITE BLOOD COUNT 9.3 TH/MM3 (4.0-11.0)
[2016-07-10 04:20] LABS: HEMO FLAGS AUTO DIFF
[2016-07-10 04:47] LABS: ANION GAP 11 MEQ/L (5-15); AST (GOT) 12 U/L (15-37); BICARBONATE 20.2 MEQ/L (21.0-32.0); BLOOD UREA NITROGEN 55 MG/DL (7-18); CHLORIDE 115 MEQ/L (98-107); GLOMERULAR FILTRATION RATE 44 ML/MIN (>89); MAGNESIUM 2.2 MG/DL (1.5-2.5); POTASSIUM 4.7 MEQ/L (3.5-5.1); SODIUM (NA) 146 MEQ/L (136-145)
[2016-07-10 04:51] LABS: ALKALINE PHOSPHATASE 77 U/L (45-117); ALT (GPT) 8 U/L (12-78); TOTAL BILIRUBIN ADULT 1.2 MG/DL (0.2-1.0)
[2016-07-10] MEDS: DEXAMETHASONE SOD PHOS 4 MG/ML VIAL IV SCH ×3 (05:12→18:01)
[2016-07-10] MEDS: PIPERACIL-TAZO 4.5 GM PREMIX 100 ML IV SCH ×3 (05:13→18:01)
--- NOTE | 2016-07-10 05:28 | RADRPT ---
EXAM DATE/TIME: 07/10/2016 04:36 [facility] COMPARISON: CHEST SINGLE AP, July 09, 2016, 13:42. INDICATIONS : Evaluate lung status. MEDICAL HISTORY : Hypertension. SURGICAL HISTORY : None. ENCOUNTER: Subsequent ACUITY: 2 days PAIN SCORE: Non-responsive. LOCATION: Bilateral chest FINDINGS: Cardiomegaly. Endotracheal tube tip at the inferior margin of the clavicles. EKG leads overlie the ch est. There is consolidation in the lower lobes and a moderate right-sided pneumothorax is present. Ba silar airspace disease. CONCLUSION: Moderate right pneumothorax. This was discussed with Asia antoine nurse taking care of the patient at 5:24 AM on July 10, 2016. Robbie Villafana MD on July 10, 2016 at 5:18 Board Certified Radiologist. This report was verified electronically.
[2016-07-10 05:42] LABS: BLOOD GAS BASE EXCESS -7.3 mmol/L (-2-2); BLOOD GAS CARBOXYHEMOGLOBIN 0.8 % (0-4); BLOOD GAS HCO3 17 mmol/L (22-26); BLOOD GAS METHEMOGLOBIN 0.9 % (0-2); BLOOD GAS O2 HGB SATURATION 97 % (90-100); BLOOD GAS OXYGEN CONTENT 22.2 Vol % (12.0-20.0); BLOOD GAS PCO2 32 mmHg (38-42); BLOOD GAS PO2 126 mmHg (61-120); BLOOD GAS TOTAL HGB 16.2 G/DL (12.0-16.0); CRITICAL VALUE NO; OXYGEN DEVICE VENTILATOR; TEMP CORR TO 98.6
[2016-07-10 05:43] LABS: DRAW SITE ART LINE; FIO2 50 %; STAT NO; VENT SETTINGS PRVC/AC
[2016-07-10] MEDS: ISOSORBIDE MONONITRATE 30 MG TAB PO SCH (06:52)
[2016-07-10 07:08] LABS: BANDS 21 % (0-6); METAMYELOCYTES 1 % (0-1); MYELOCYTES 1 % (0-0); NEUTROPHIL # MANUAL DIFF 8.3 TH/MM3 (1.8-7.7); POLYS (SEG NEUTROPHILS) 66 % (16-70); WBC DIFF SAMPLE 100
[2016-07-10 07:09] LABS: PLATELET ESTIMATE SMEAR LOW (NORMAL); PLATELET MORPHOLOGY NORMAL (NORMAL); SCAN/DIFF FINAL DIFF MANUAL
[2016-07-10] MEDS: CHLORHEXIDINE 0.12% (ORAL KIT) 15 ML CUP MT SCH ×2 (08:57→21:02)
[2016-07-10] MEDS: SODIUM CHLOR 0.9% 1000 ML INJ 1,000 ML IV SCH (08:57)
[2016-07-10] MEDS: SODIUM CHLORIDE 0.9% FLUSH 5 ML FLUSH IV FLUSH SCH ×2 (08:57→21:02)
[2016-07-10] MEDS: TAMSULOSIN HCL 0.4 MG CAP PO SCH (08:58)
[2016-07-10] MEDS: PRAVASTATIN SOD 10 MG TAB PO SCH (08:58)
[2016-07-10] MEDS: BISACODYL 10 MG SUPP RECTAL SCH (09:00)
[2016-07-10] MEDS: CARVEDILOL 12.5 MG TAB PO SCH ×2 (09:00→21:00)
[2016-07-10] MEDS: DOCUSATE SODIUM 100 MG CAP PO SCH ×2 (09:00→21:00)
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
[2016-07-10] MEDS: D5-1/2 NS + KCL 20 MEQ INJ 1,000 ML IV SCH ×3 (10:50→21:48)
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
--- NOTE | 2016-07-10 13:39 | RADRPT ---
EXAM DATE/TIME: 07/10/2016 12:25 [facility] COMPARISON: CHEST SINGLE AP, July 10, 2016, 4:36. INDICATIONS: Post PICC line placement. MEDICAL HISTORY: Hypertension. SURGICAL HISTORY: None. ENCOUNTER: Subsequent ACUITY: 4 - 6 days PAIN SCORE: 0/10 LOCATION: Bilateral chest FINDINGS: Persistent pneumothorax remains in the apex of the right lung measuring 3.5 cm. Central venous darrick ter and ET tube are in good position. Left lung is clear. Heart remains enlarged. There is mild in terstitial edema. CONCLUSION: Persistent right pneumothorax. This is slightly smaller in the interval. Wally Pak MD FACR on July 10, 2016 at 13:27 Board Certified Radiologist. This report was verified electronically.
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
[2016-07-10] MEDS ORDERED: LIDOCAINE HCL 1% 50 ML VIAL ONE (15:06)
[2016-07-10] MEDS ORDERED: LIDOCAINE HCL 1% 20 ML VIAL INFIL ONE (15:15)
--- NOTE | 2016-07-10 15:36 | PD.OP ---
Operative Report Date of Surgery: Jul 10, 2016 Preoperative Diagnosis: Right pneumothorax Postoperative Diagnosis: Right pneumothorax Procedure: Right sided chest tube placement Anesthesia: Local Surgeon: Franklyn Bertrand Cigar Head Pegger(s): none Resident Surgeon: none Operation and Findings: Informed consent was provided by the who is at the bedside. Right chest wall was prepped and draped in the standard sterile manner. 5 cc of lidocaine was infiltrated into the second intercostal space right midclavicular line. A small marion in the skin was made using an 11 blade scalpel. An 8 Bengali pigtail catheter was then placed into position using the needle introducer. It was secured with the provided apparatus. The catheter threaded into position without resistance there was condensation on the collection tube. The patient tolerated the procedure well there were no complications. Stat portable chest x -ray was ordered to confirm position of the tube and resolution of the pneumothorax. Franklyn Bertrand MD Jul 10, 2016 15:36
--- NOTE | 2016-07-10 16:29 | RADRPT ---
EXAM DATE/TIME: 07/10/2016 16:10 [facility] COMPARISON: CHEST SINGLE AP, July 10, 2016, 12:25. INDICATIONS : Right chest tube placement. MEDICAL HISTORY : Hypertension. SURGICAL HISTORY : None. ENCOUNTER: Subsequent ACUITY: 4 - 6 days PAIN SCORE: Non-responsive. LOCATION: Bilateral chest FINDINGS: Small bore chest tube is in place on the right without pneumothorax. PICC line is in good position. Central venous catheter is in good position. Minimal bibasilar parenchymal changes are noted. CONCLUSION: Small bore chest tube in good position on the right without residual pneumothorax. Wally Pka MD FACR on July 10, 2016 at 16:25 Board Certified Radiologist. This report was verified electronically.
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
--- NOTE | 2016-07-10 17:53 | PD.CONS ---
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 Sparing use. Dyspnea: on mech vent. Agitation: agitation reported by nurses when pt off sedation. On Diprivan currently. Appears comfortable. * Discussed with trauma team, Dr. Haynes and nurse. * Palliative care number provided. * Palliative care will continue to follow to assist with symptom management and clarification of treatment goals. . (FLO GARCIA) Thank you for the opportunity to participate in the care of Mr. Rutherford. (FLO GARCIA) Attestation To help prompt me to consider important information that might be impacting today's encounter and assessment, information from prior notes written by myself or my colleagues may have been "brought forward" into today's note. My signature on this note, however, is an attestation that I personally performed the exam, history, and/or decision-making noted today, and, unless otherwise indicated, the interactions with patient, family, and staff as well as the review of records all occurred today. I also attest that the listed assessment and stated plan reflect my best clinical judgment today based on the combination of historical information, prior notes, and today's exam/ interactions. When time spent is documented, it refers only to time spent today by the signer, or if indicated, combined time spent today by collaborating physician/nurse practitioner. (FLO GARCIA) Collaborating MD Comments Discussed with HANANE, agree with assessment and plan (Holden Marsh MD) FLO GARCIA Jul 10, 2016 17:53 Holden Marsh MD Jul 20, 2016 14:24
[2016-07-10] MEDS: MAGNESIUM HYDROXIDE SUSP 30 ML CUP PO SCH (21:00)
[2016-07-10] MEDS: FAMOTIDINE 20 MG TAB PO SCH (21:00)
--- NOTE | 2016-07-10 22:41 | RADRPT ---
EXAM DATE/TIME: 07/10/2016 21:47 [facility] COMPARISON: CHEST SINGLE AP, July 10, 2016, 16:10. INDICATIONS : Right chest tube. MEDICAL HISTORY : unobtainable SURGICAL HISTORY : unobtainable ENCOUNTER: Subsequent ACUITY: 1 day PAIN SCORE: Non-responsive. LOCATION: Right upper chest FINDINGS: A single view of the chest demonstrates endotracheal tube in satisfactory position. Left PICC line ti p in right atrium. Small caliber right chest tube present now with a small right pneumothorax with ab out 3.3 cm pleural separation superiorly. Basilar airspace disease persists similar to earlier examin ation. CONCLUSION: 1. Right chest tube remains present now with a small right pneumothorax as above. Chest tubes should be checked for suction. Gallo Rivera MD on July 10, 2016 at 22:37 Board Certified Radiologist. This report was verified electronically.
[2016-07-11] VITALS (20 sets, daily range): BP systolic 124–158; BP diastolic 33–67; PULSE 67–83; RESP 20; TEMP 96.3–99; O2SAT 94–95
[2016-07-11] MEDS: PIPERACIL-TAZO 4.5 GM PREMIX 100 ML IV SCH ×5 (01:21→23:48)
[2016-07-11] MEDS: ENOXAPARIN SODIUM 30 MG/0.3 ML SYRINGE SQ SCH ×2 (01:21→14:30)
[2016-07-11] MEDS: DEXAMETHASONE SOD PHOS 4 MG/ML VIAL IV SCH ×5 (01:21→23:48)
[2016-07-11] MEDS: PROPOFOL 1000 MG/100 ML INJ 100 ML IV SCH ×4 (03:13→23:48)
[2016-07-11] MEDS: RESP: ALBUTEROL 2.5 MG/IPRATROPIUM 0.5 MG NEB (SCH) INH ×4 (03:36→21:42)
[2016-07-11 03:39] LABS: BASOPHIL % 0.1 % (0.0-2.0); EOSINOPHIL % 0.1 % (0.0-4.0); HEMATOCRIT 43.2 % (39.0-51.0); LYMPH % 2.9 % (9.0-44.0); LYMPHOCYTE # 0.3 TH/MM3 (1.0-4.8); MEAN CELL VOLUME 93.3 FL (80.0-100.0); MEAN CORPUSCULAR HEMOGLOBIN 31.9 PG (27.0-34.0); MEAN CORPUSCULAR HGB CONC 34.1 % (32.0-36.0); MONO % 8.5 % (0.0-8.0); NEUT % 88.4 % (16.0-70.0); PLATELET COUNT 98 TH/MM3 (150-450); RED BLOOD COUNT 4.63 MIL/MM3 (4.50-5.90); RED CELL DISTRIBUTION WIDTH 16.6 % (11.6-17.2); WHITE BLOOD COUNT 9.1 TH/MM3 (4.0-11.0)
[2016-07-11 03:42] LABS: HEMO FLAGS AUTO DIFF
[2016-07-11 04:04] LABS: ALKALINE PHOSPHATASE 56 U/L (45-117); ALT (GPT) 11 U/L (12-78); ANION GAP 10 MEQ/L (5-15); AST (GOT) 12 U/L (15-37); BICARBONATE 20.5 MEQ/L (21.0-32.0); BLOOD UREA NITROGEN 53 MG/DL (7-18); CHLORIDE 115 MEQ/L (98-107); GLOMERULAR FILTRATION RATE 49 ML/MIN (>89); MAGNESIUM 2.3 MG/DL (1.5-2.5); POTASSIUM 4.6 MEQ/L (3.5-5.1); SODIUM (NA) 145 MEQ/L (136-145); TOTAL BILIRUBIN ADULT 0.9 MG/DL (0.2-1.0)
[2016-07-11 04:53] LABS: BANDS 15 % (0-6); METAMYELOCYTES 1 % (0-1); NEUTROPHIL # MANUAL DIFF 8.6 TH/MM3 (1.8-7.7); PLATELET ESTIMATE SMEAR LOW (NORMAL); PLATELET MORPHOLOGY NORMAL (NORMAL); POLYS (SEG NEUTROPHILS) 79 % (16-70); SCAN/DIFF FINAL DIFF MANUAL; WBC DIFF SAMPLE 100
[2016-07-11] MEDS: D5-1/2 NS + KCL 20 MEQ INJ 1,000 ML IV SCH ×3 (05:40→18:09)
--- NOTE | 2016-07-11 05:41 | RADRPT ---
EXAM DATE/TIME: 07/11/2016 04:11 [facility] COMPARISON: CHEST SINGLE AP, July 10, 2016, 21:47. INDICATIONS : Shortness of breath. MEDICAL HISTORY : Hypertension. SURGICAL HISTORY : None. ENCOUNTER: Subsequent ACUITY: 4 - 6 days PAIN SCORE: Non-responsive. LOCATION: Bilateral chest FINDINGS: Endotracheal tube, left PICC line and right pigtail catheter are identified. Bilateral effusions and basilar airspace disease. I do not see a pneumothorax. CONCLUSION: Chest tube in place on the right. A pneumothorax is not clearly visualized today. Robbie Villafana MD on July 11, 2016 at 5:39 Board Certified Radiologist. This report was verified electronically.
[2016-07-11] MEDS ORDERED: ICU - SODIUM PHOSPHATE 30 MMOL/NS 250 ML IV ONE ×2 (06:00)
[2016-07-11] MEDS: ISOSORBIDE MONONITRATE 30 MG TAB PO SCH (07:00)
[2016-07-11] MEDS: CHLORHEXIDINE 0.12% (ORAL KIT) 15 ML CUP MT SCH ×2 (08:41→19:57)
[2016-07-11] MEDS: SODIUM CHLORIDE 0.9% FLUSH 5 ML FLUSH IV FLUSH SCH ×2 (08:42→19:57)
[2016-07-11] MEDS: DOCUSATE SODIUM 100 MG CAP PO SCH ×2 (08:42→19:57)
[2016-07-11] MEDS: PRAVASTATIN SOD 10 MG TAB PO SCH (08:44)
[2016-07-11] MEDS: TAMSULOSIN HCL 0.4 MG CAP PO SCH (08:44)
[2016-07-11] MEDS: BISACODYL 10 MG SUPP RECTAL SCH (08:44)
[2016-07-11] MEDS: CARVEDILOL 12.5 MG TAB PO SCH ×2 (08:44→19:58)
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
[2016-07-11] MEDS: FAMOTIDINE 20 MG TAB PO SCH (19:58)
[2016-07-11] MEDS: MAGNESIUM HYDROXIDE SUSP 30 ML CUP PO SCH (19:58)
[2016-07-12] VITALS (12 sets, daily range): BP systolic 144–159; BP diastolic 34–67; PULSE 68–82; RESP 20–22; TEMP 97.2–99; O2SAT 91–94
[2016-07-12] MEDS: ENOXAPARIN SODIUM 30 MG/0.3 ML SYRINGE SQ SCH (01:52)
[2016-07-12] MEDS: D5-1/2 NS + KCL 20 MEQ INJ 1,000 ML IV SCH ×2 (01:54→06:52)
[2016-07-12 04:44] LABS: HEMATOCRIT 43.5 % (39.0-51.0); MEAN CELL VOLUME 92.9 FL (80.0-100.0); MEAN CORPUSCULAR HEMOGLOBIN 31.6 PG (27.0-34.0); PLATELET COUNT 97 TH/MM3 (150-450); RED BLOOD COUNT 4.68 MIL/MM3 (4.50-5.90); RED CELL DISTRIBUTION WIDTH 16.5 % (11.6-17.2); WHITE BLOOD COUNT 10.3 TH/MM3 (4.0-11.0)
[2016-07-12 04:45] LABS: REVIEW FLAG FINAL
[2016-07-12] MEDS: DEXAMETHASONE SOD PHOS 4 MG/ML VIAL IV SCH (05:14)
[2016-07-12] MEDS: PIPERACIL-TAZO 4.5 GM PREMIX 100 ML IV SCH (05:15)
[2016-07-12 05:19] LABS: BICARBONATE 17.2 MEQ/L (21.0-32.0); MAGNESIUM 2.3 MG/DL (1.5-2.5)
--- NOTE | 2016-07-12 06:34 | RADRPT ---
EXAM DATE/TIME: 07/12/2016 05:30 [facility] COMPARISON: CHEST SINGLE AP, July 11, 2016, 4:11. INDICATIONS : Shortness of breath. MEDICAL HISTORY : Hypertension. SURGICAL HISTORY : None. ENCOUNTER: Initial ACUITY: 4 - 6 days PAIN SCORE: Non-responsive. LOCATION: Bilateral chest FINDINGS: Endotracheal tube, enteric tube, left PICC line and right pigtail catheter again noted. Tiny right ap ical pneumothorax. Cardiomegaly, effusions and lower lobe consolidation. Cardiomegaly. CONCLUSION: Tiny right apical pneumothorax noted. Bilateral effusions and consolidation. Robbie Villafana MD on July 12, 2016 at 6:32 Board Certified Radiologist. This report was verified electronically.
[2016-07-12] MEDS: PROPOFOL 1000 MG/100 ML INJ 100 ML IV SCH (06:52)
[2016-07-12] MEDS: ISOSORBIDE MONONITRATE 30 MG TAB PO SCH (06:57)
[2016-07-12] MEDS ORDERED: DEXTROSE 50% IN WATER 50 ML VIAL(D50) IV PUSH PRN (07:15)
[2016-07-12] MEDS ORDERED: GLUCAGON 1 MG/ML VIAL OTHER PRN (07:15)
[2016-07-12] MEDS: CARVEDILOL 12.5 MG TAB PO SCH (09:00)
[2016-07-12] MEDS: DOCUSATE SODIUM 100 MG CAP PO SCH (09:00)
[2016-07-12] MEDS: PRAVASTATIN SOD 10 MG TAB PO SCH (09:00)
[2016-07-12] MEDS: TAMSULOSIN HCL 0.4 MG CAP PO SCH (09:00)
[2016-07-12] MEDS: CHLORHEXIDINE 0.12% (ORAL KIT) 15 ML CUP MT SCH (09:20)
[2016-07-12] MEDS ORDERED: POTASSIUM CL 40 MEQ/30 ML LIQ UDC PO/TUBE PRN ×2 (09:30)
[2016-07-12] MEDS ORDERED: MAGNESIUM SULFATE INJ 4 GM in SODIUM CHLORIDE 0.9% INJ 92 ML IV PRN (09:30)
[2016-07-12] MEDS ORDERED: MAGNESIUM OXIDE 400 MG TAB PO PRN (09:30)
[2016-07-12] MEDS ORDERED: POTASSIUM PHOSPHATE MONOBASIC 500 MG TAB PO PRN (09:30)
[2016-07-12] MEDS ORDERED: POTASSIUM CHLOR 40 MEQ PREMIX 100 ML IV PRN ×2 (09:30)
[2016-07-12] MEDS ORDERED: SODIUM PHOSPHATE INJ 30 MMOL in SODIUM CHLOR 0.9% 250 ML INJ 240 ML IV PRN (09:30)
[2016-07-12] MEDS ORDERED: POTASSIUM PHOSPHATE INJ 30 MMOL in SODIUM CHLOR 0.9% 250 ML INJ 250 ML IV PRN (09:30)
[2016-07-12] MEDS ORDERED: POTASSIUM CHLOR 20 MEQ PREMIX 100 ML IV PRN ×2 (09:30)
[2016-07-12] MEDS ORDERED: POTASSIUM PHOSPHATE MONOBASIC 500 MG TAB PO/TUBE PRN (09:30)
[2016-07-12] MEDS ORDERED: MAGNESIUM SULFATE INJ 2 GM in SODIUM CHLORIDE 0.9% INJ 96 ML IV PRN (09:30)
[2016-07-12] MEDS ORDERED: FUROSEMIDE 40 MG/4 ML VIAL IV PUSH ONE (10:00)
[2016-07-12] MEDS: SODIUM CHLORIDE 0.9% FLUSH 5 ML FLUSH IV FLUSH SCH (10:08)
[2016-07-12] MEDS: BISACODYL 10 MG SUPP RECTAL SCH (10:10)
[2016-07-12] MEDS ORDERED: INSULIN NovoLIN REGULAR SUPPLEMENTAL SCALE SQ SCH (11:00)
[2016-07-12] MEDS ORDERED: HYOSCYAMINE 0.5 MG/ML AMP IV ONE (12:15)
[2016-07-12] MEDS ORDERED: LORazepam 2 MG/ML VIAL IV ONE ×2 (12:15→12:30)
[2016-07-12] MEDS ORDERED: MORPHINE SULFATE 4 MG/ML INJ IV PRN (12:15)
[2016-07-12] MEDS ORDERED: MORPHINE SULFATE 8 MG/ML INJ IV PUSH ONE ×2 (12:15→12:30)
[2016-07-12] MEDS ORDERED: MORPHINE SULFATE 8 MG/ML INJ IV PUSH PRN (12:15)
--- NOTE | 2016-07-12 12:16 | HHI.HCPN ---
Reason for visit a. To assist with evaluation and management of symptoms including: dyspnea, agitation, weakness. b. To assist medical decision maker(s) with: better understanding of current medical conditions; weighing benefits/burdens of medical treatment options; making medical treatment decisions. . Subjective/Interval History Call from nurse to request I come to speak with family JESSENIA reporting the children arrived last night and family met with Dr. Mendoza last night and have elected to proceed with withdrawal of life support. I arrived to room, 2 daughters and son at bedside. indicates after speaking with Dr. Mendoza, they want to proceed with withdrawal of life support. We went to conference room to speak. Family indicates the patient sedation has been lowered and they have spoken with patient - he nods in agreement that he wants tubes removed and nods yes when daughter asked him if he understands what can happen if they removed them, he again nods yes. He is trying to bite ETT and attempts to pull it out with RU per family. Family is certain patient would NOT want tracheostomy or PEG tube and absolutely would not find any quality of life less than a life of full independence acceptable. He would not want to be in a wheelchair or having someone "wipe his bottom." Family verbalized their frustration with perceived lack of adequate communication between medical team and family. Family desires to proceed with withdrawal of life support JESSENIA. Family wants to ensure patient's comfort and requested adequate medications, doesn't want him to have to wait for medication if he is uncomfortable. Requests scheduled Morphine and Ativan for comfort. Reviewed plan for medications and family agrees. Patient on Diprivan 10. Awake and alert, nods yes/no to questions, advised we will taking the tubes out today he nods yes. Explained we will make sure he is comfortable he nods yes. Afebrile. Discussed with Dr. Mendoza, Dr. Haynes who both support pt/family wishes. Left message for Dr. Morrissey and JAZMIN Holliday. Orders written for withdrawal of life support by Dr. Marsh, reviewed family wishes for adequate comfort medications. . Family/friend interactions See interval note. Advance Directives Living Will: Completed, but not made available Health Care Surrogate: Completed, but not made available Advance Directive Specifics Health Care Surrogate(s): indicates patient has written advance directives, requested copy. Searched in old EMR, no copy on file. . Significant change in goals: NO CODE. Transition to comfort measures only with withdrawal of life support. . Objective Vital Signs Date Time Temp Pulse Resp B/P Pulse Ox O2 Delivery O2 Flow Rate FiO2 07/12/16 09:23 50 07/12/16 09:23 93 50 07/12/16 09:14 94 50 07/12/16 08:00 50 07/12/16 08:00 73 07/12/16 06:00 80 07/12/16 04:04 94 50 07/12/16 04:00 97.2 68 20 159/67 94 154/39 07/12/16 04:00 68 07/12/16 04:00 50 07/12/16 02:00 74 07/12/16 00:41 94 50 07/12/16 00:00 71 07/12/16 00:00 50 07/12/16 00:00 97.3 71 20 156/66 91 149/34 07/11/16 22:00 78 07/11/16 21:42 94 50 07/11/16 20:00 50 07/11/16 20:00 98.1 73 20 145/63 94 151/35 07/11/16 20:00 72 07/11/16 19:00 92 Mechanical Ventilator 50 07/11/16 18:00 72 07/11/16 16:56 94 50 07/11/16 16:00 99.0 73 20 155/67 94 158/39 07/11/16 16:00 73 07/11/16 16:00 50 07/11/16 15:00 98.6 07/11/16 14:00 75 Intake & Output 07/12/16 07/12/16 07:00 19:00 Intake Total 2627 ml Output Total 775 ml Balance 1852 ml IV Total 2627 ml Output Urine Total 775 ml Chest Tube Drainage Total 0 ml # Bowel Movements 0 Physical Exam CONSTITUTIONAL/GENERAL: This is an elderly, critically ill patient, sedated on mechanical ventilation. TUBES/LINES/DRAINS: ETT, bite block x 2, Cowl[place] collar, right chest tube, PIV bilateral, Cosby, SCD's SKIN: No jaundice, rashes, or lesions. Ecchymoses on upper extremities. Skin temperature appropriate. Not diaphoretic. EYES: eyes open. ENT: Hearing grossly normal. Nose without bleeding or purulent drainage. Throat without visible erythema, exudates, masses, or lesions. CARDIOVASCULAR: Regular rate and rhythm without murmurs, gallops, or rubs. No JVD. Peripheral pulses symmetric. RESPIRATORY/CHEST: Symmetric, unlabored respirations. Clear to auscultation. Breath sounds equal bilaterally. GASTROINTESTINAL: Abdomen soft, non-tender, nondistended. No guarding. Hypoactive bowel sounds. GENITOURINARY: Without palpable bladder distension. Cosby catheter in place. MUSCULOSKELETAL: Extremities without clubbing, cyanosis, or edema. No mottling or clubbing. NEUROLOGICAL: sedated on mechanical vent. Withdraws slightly to painful stimuli bilateral LEs PSYCHIATRIC: sedated. . Diagnostic Tests Laboratory Laboratory Tests Test 07/09/16 07/10/16 07/10/16 07/10/16 15:40 03:26 03:36 05:25 Blood Gas Puncture Site ART LINE ART LINE Blood Gas Patient Temperature 98.6 98.6 Blood Gas HCO3 18 mmol/L 17 mmol/L (22-26) (22-26) Blood Gas Base Excess -8.4 mmol/L -7.3 mmol/L (-2-2) (-2-2) Blood Gas Oxygen Saturation 97 % (90-100) 97 % (90-100) Arterial Blood pH 7.24 7.35 (7.380-7.420) (7.380-7.420) Arterial Blood Partial 42 mmHg (38-42) 32 mmHg (38-42) Pressure CO2 Arterial Blood Partial 149 mmHg 126 mmHg Pressure O2 (61-120) (61-120) Arterial Blood Oxygen Content 22.8 Vol % 22.2 Vol % (12.0-20.0) (12.0-20.0) Arterial Blood 0.6 % (0-4) 0.8 % (0-4) Carboxyhemoglobin Arterial Blood Methemoglobin 1.0 % (0-2) 0.9 % (0-2) Blood Gas Hemoglobin 16.6 G/DL 16.2 G/DL (12.0-16.0) (12.0-16.0) Oxygen Delivery Device VENTILATOR VENTILATOR Blood Gas Ventilator Setting PRVC/16/600/1.0/+12 PRVC/AC Blood Gas Inspired Oxygen 75 % 50 % Sodium Level 146 MEQ/L (136-145) Potassium Level 4.7 MEQ/L (3.5-5.1) Chloride Level 115 MEQ/L (98-107) Carbon Dioxide Level 20.2 MEQ/L (21.0-32.0) Anion Gap 11 MEQ/L (5-15) Blood Urea Nitrogen 55 MG/DL (7-18) Creatinine 1.50 MG/DL (0.60-1.30) Estimat Glomerular Filtration 44 ML/MIN (>89) Rate Random Glucose 126 MG/DL (74-106) Calcium Level 9.0 MG/DL (8.5-10.1) Phosphorus Level 2.4 MG/DL (2.5-4.9) Magnesium Level 2.2 MG/DL (1.5-2.5) Total Bilirubin 1.2 MG/DL (0.2-1.0) Aspartate Amino Transf 12 U/L (15-37) (AST/SGOT) Alanine Aminotransferase 8 U/L (12-78) (ALT/SGPT) Alkaline Phosphatase 77 U/L (45-117) Total Protein 5.9 GM/DL (6.4-8.2) Albumin 2.5 GM/DL (3.4-5.0) White Blood Count 9.3 TH/MM3 (4.0-11.0) Red Blood Count 5.08 MIL/MM3 (4.50-5.90) Hemoglobin 16.1 GM/DL (13.0-17.0) Hematocrit 47.6 % (39.0-51.0) Mean Corpuscular Volume 93.7 FL (80.0-100.0) Mean Corpuscular Hemoglobin 31.7 PG (27.0-34.0) Mean Corpuscular Hemoglobin 33.8 % Concent (32.0-36.0) Red Cell Distribution Width 16.2 % (11.6-17.2) Platelet Count 113 TH/MM3 (150-450) Mean Platelet Volume 9.8 FL (7.0-11.0) Neutrophils (%) (Auto) 85.2 % (16.0-70.0) Lymphocytes (%) (Auto) 2.5 % (9.0-44.0) Monocytes (%) (Auto) 12.3 % (0.0-8.0) Eosinophils (%) (Auto) 0.0 % (0.0-4.0) Basophils (%) (Auto) 0.0 % (0.0-2.0) Neutrophils # (Auto) 7.9 TH/MM3 (1.8-7.7) Lymphocytes # (Auto) 0.2 TH/MM3 (1.0-4.8) Monocytes # (Auto) 1.1 TH/MM3 (0-0.9) Eosinophils # (Auto) 0.0 TH/MM3 (0-0.4) Basophils # (Auto) 0.0 TH/MM3 (0-0.2) CBC Comment AUTO DIFF Differential Total Cells 100 Counted Neutrophils % (Manual) 66 % (16-70) Band Neutrophils % 21 % (0-6) Lymphocytes % 3 % (9-44) Monocytes % 8 % (0-8) Neutrophils # (Manual) 8.3 TH/MM3 (1.8-7.7) Metamyelocytes 1 % (0-1) Myelocytes 1 % (0-0) Differential Comment FINAL DIFF MANUAL Platelet Estimate LOW (NORMAL) Platelet Morphology Comment NORMAL (NORMAL) Red Cell Morphology Comment NORMAL (NORMAL) Test 07/11/16 07/12/16 07/12/16 07/12/16 03:30 03:15 04:00 04:15 White Blood Count 9.1 TH/MM3 TH/MM3 10.3 TH/MM3 (4.0-11.0) (4.0-11.0) (4.0-11.0) Red Blood Count 4.63 MIL/MM3 MIL/MM3 4.68 MIL/MM3 (4.50-5.90) (4.50-5.90) (4.50-5.90) Hemoglobin 14.7 GM/DL GM/DL 14.8 GM/DL (13.0-17.0) (13.0-17.0) (13.0-17.0) Hematocrit 43.2 % % (39.0-51.0) 43.5 % (39.0-51.0) (39.0-51.0) Mean Corpuscular Volume 93.3 FL FL 92.9 FL (80.0-100.0) (80.0-100.0) (80.0-100.0) Mean Corpuscular Hemoglobin 31.9 PG PG (27.0-34.0) 31.6 PG (27.0-34.0) (27.0-34.0) Mean Corpuscular Hemoglobin 34.1 % % (32.0-36.0) 34.0 % Concent (32.0-36.0) (32.0-36.0) Red Cell Distribution Width 16.6 % % (11.6-17.2) 16.5 % (11.6-17.2) (11.6-17.2) Platelet Count 98 TH/MM3 TH/MM3 97 TH/MM3 (150-450) (150-450) (150-450) Mean Platelet Volume 9.0 FL FL (7.0-11.0) 9.7 FL (7.0-11.0) (7.0-11.0) Neutrophils (%) (Auto) 88.4 % (16.0-70.0) Lymphocytes (%) (Auto) 2.9 % (9.0-44.0) Monocytes (%) (Auto) 8.5 % (0.0-8.0) Eosinophils (%) (Auto) 0.1 % (0.0-4.0) Basophils (%) (Auto) 0.1 % (0.0-2.0) Neutrophils # (Auto) 8.0 TH/MM3 (1.8-7.7) Lymphocytes # (Auto) 0.3 TH/MM3 (1.0-4.8) Monocytes # (Auto) 0.8 TH/MM3 (0-0.9) Eosinophils # (Auto) 0.0 TH/MM3 (0-0.4) Basophils # (Auto) 0.0 TH/MM3 (0-0.2) CBC Comment AUTO DIFF Differential Total Cells 100 Counted Neutrophils % (Manual) 79 % (16-70) Band Neutrophils % 15 % (0-6) Lymphocytes % 2 % (9-44) Monocytes % 3 % (0-8) Neutrophils # (Manual) 8.6 TH/MM3 (1.8-7.7) Metamyelocytes 1 % (0-1) Differential Comment FINAL DIFF MANUAL Platelet Estimate LOW (NORMAL) Platelet Morphology Comment NORMAL (NORMAL) Red Cell Morphology Comment NORMAL (NORMAL) Sodium Level 145 MEQ/L 143 MEQ/L (136-145) (136-145) Potassium Level 4.6 MEQ/L 5.0 MEQ/L (3.5-5.1) (3.5-5.1) Chloride Level 115 MEQ/L 115 MEQ/L (98-107) (98-107) Carbon Dioxide Level 20.5 MEQ/L 17.2 MEQ/L (21.0-32.0) (21.0-32.0) Anion Gap 10 MEQ/L (5-15) 11 MEQ/L (5-15) Blood Urea Nitrogen 53 MG/DL (7-18) 48 MG/DL (7-18) Creatinine 1.36 MG/DL 1.19 MG/DL (0.60-1.30) (0.60-1.30) Estimat Glomerular Filtration 49 ML/MIN (>89) 58 ML/MIN (>89) Rate Random Glucose 171 MG/DL 161 MG/DL (74-106) (74-106) Calcium Level 8.1 MG/DL 8.2 MG/DL (8.5-10.1) (8.5-10.1) Phosphorus Level 1.8 MG/DL 2.2 MG/DL (2.5-4.9) (2.5-4.9) Magnesium Level 2.3 MG/DL 2.3 MG/DL (1.5-2.5) (1.5-2.5) Total Bilirubin 0.9 MG/DL (0.2-1.0) Aspartate Amino Transf 12 U/L (15-37) (AST/SGOT) Alanine Aminotransferase 11 U/L (12-78) (ALT/SGPT) Alkaline Phosphatase 56 U/L (45-117) Total Protein 5.2 GM/DL (6.4-8.2) Albumin 2.0 GM/DL (3.4-5.0) Result Diagram: 07/12/16 0415 07/12/16 0400 Imaging Last Impressions Chest X-Ray 07/12/16 0500 Signed Impressions: Service Date/Time: Tuesday, July 12, 2016 05:30 - CONCLUSION: Tiny right apical pneumothorax noted. Bilateral effusions and consolidation. Robbie Villafana MD Cervical Spine X-Ray 07/07/16 0000 Signed Impressions: Service Date/Time: Thursday, July 07, 2016 11:32 - CONCLUSION: Anatomic alignment. Wally Pak MD FACR Thoracic Spine CT 07/06/161310 Signed Impressions: Service Date/Time: July 13:27 - CONCLUSION: 1. No evidence of fracture. 2. Bridging osteophytes or syndesmophytes at every level of the thoracic spine indicating either degenerative changes or spondyloarthropathy such as ankylosing spondylitis. 3. Central canal diameter within normal limits at all levels. Tr Miller MD Pelvis X-Ray 07/06/161310 Signed Impressions: Service Date/Time: July 13:00 - CONCLUSION: There is no evidence of acute fracture. Alvarado Huertas MD Lumbar Spine CT 07/06/161310 Signed Impressions: Service Date/Time: July 13:27 - CONCLUSION: 1. Advanced multilevel degenerative changes as described above.. 2. No fracture or subluxation. Carlos Wells MD Head CT 07/06/161310 Signed Impressions: Service Date/Time: July 13:20 - CONCLUSION: Maxillary, sphenoid, and ethmoid sinus opacification. No acute intracranial findings. Tr Miller MD Chest CT 07/06/161310 Signed Impressions: Service Date/Time: July 13:27 - CONCLUSION: Mild airspace disease left lower lobe. Cardiomegaly with evidence of calcific coronary artery disease. No other evidence of acute process. Arthur Martinez MD Cervical Spine CT 07/06/161310 Signed Impressions: Service Date/Time: July 13:25 - CONCLUSION: No evidence of acute bony or soft tissue trauma. Degenerative disc disease with spondylosis. Mild to moderate facet arthropathy.. Arthur Martinez MD Abdomen/Pelvis CT 07/06/161310 Signed Impressions: Service Date/Time: July 13:27 - CONCLUSION: No evidence of acute soft tissue or bony trauma. Bilateral renal cysts. Colonic diverticulosis without evidence of active inflammatory disease. 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 Arthur Martinez MD Thoracic Spine MRI 07/06/16 0000 Signed Impressions: Service Date/Time: July 18:06 - CONCLUSION: 1. No fracture or subluxation of the thoracic spine. 2. Mild degenerative disc disease with reactive-appearing endplate marrow edema at T1/T2. 3. Bridging syndesmophytes from T2/T3 through T12/L1 and mild dextroconvex scoliosis. 4. Mild multilevel costovertebral osteoarthritis. 5. No significant foraminal or spinal stenosis at level. Thoracic cord has normal signal and morphology throughout. Dallas Rios MD Cervical Spine MRI 07/06/16 0000 Signed Impressions: Service Date/Time: July 18:06 - CONCLUSION: 1. Focal acute disruption of the anterior longitudinal ligament and anterior syndesmophyte complex at C3/C4 with a prevertebral soft tissue hematoma but no epidural hematoma. Presumably a hyperextension mechanism. Considerable disc and uncovertebral/facet degenerative changes seen at this level and there are a couple millimeters of C3/C4 retrolisthesis that I believe are degenerative, all contributing to moderate to severe spinal stenosis with cord compression and moderate bilateral foraminal stenosis. A short segment cord contusion, presumably acute, is seen at the C3/C4 level. 2. No fracture or subluxation elsewhere. Multilevel degenerative changes with mild to moderate spinal stenosis and moderate degrees of foraminal stenosis from C4/C5 through C6 C7 and please see above. 3. Right facet marrow edema at C4/C5 that appears degenerative/reactive. Dallas Rios MD Brachial Plexus MRI 07/06/16 0000 Signed Impressions: Service Date/Time: July 18:06 - CONCLUSION: Distal to the cervical spine the right brachial plexus is within normal limits. Please see above and refer to the MRI report for cervical spine findings. Dallas Rios MD . Procedures * 07/10/16 right chest tube placement * 07/07/16 intubation, extubation and reintubation * 07/07/16 - C3-4 anterior cervical discectomy, interbody arthrodesis with autologous bone graft C6 C7 instrumentation fixation with plate and screws. . 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 Has 1 son and 2 daughters. Spiritual: Unknown. Legal:No known concerns at this time. Patient has written advance directives, reported healthcare surrogate. If no written advance directives obtained/ found, health care proxy decision-making would fall to the patient's spouseLisa according to [place] statutes. Ethical issues impacting care: No known concerns at this time. . Important Contacts * Lisa Rutherford, /HCS: [phone] (home) or [phone] (cell) Prognosis Will need to discuss prognosis with neurosurgery, in speaking with trauma team patient will likely live a life of dependence. . Code Status: No Code Plan * No known concerns at this time. Patient has written advance directives, reported healthcare surrogate. If no written advance directives obtained/found , health care proxy decision-making would fall to the patient's spouse, Lisa according to [place] statutes. * NO CODE * Spoke with (Lisa), 2 daughters and 1 son at bedside and in conference room. indicates after speaking with Dr. Mendoza, they want to proceed with withdrawal of life support. We went to conference room to speak. Family indicates the patient sedation has been lowered and they have spoken with patient - he nods in agreement that he wants tubes removed and nods yes when daughter asked him if he understands what can happen if they removed them, he again nods yes. He is trying to bite ETT and attempts to pull it out with RU per family. Family is certain patient would NOT want tracheostomy or PEG tube and absolutely would not find any quality of life less than a life of full independence acceptable. He would not want to be in a wheelchair or having someone "wipe his bottom." Family verbalized their frustration with perceived lack of adequate communication between medical team and family. Family desires to proceed with withdrawal of life support JESSENIA. Family wants to ensure patient' s comfort and requested adequate medications, doesn't want him to have to wait for medication if he is uncomfortable. Requests scheduled Morphine and Ativan for comfort. Reviewed plan for medications and family agrees. * Discussed with Dr. Haynes, Dr. Mendoza and Dr. Marsh. Left message for Dr. Morrissey and and his PA. * Exhibits B & C signed on chart. Orders written for withdrawal of life support. * Family move coordinator present during a portion of family meeting. * Declined hospice at this time as they do not want any more delays. May consider in AM if pt survives. * SYMPTOMS: Pain potential sources include C spine fracture, recent surgery, intubation, chest tube etc. Has PRN Morphine and Hydrocodone available. Sparing use. Dyspnea: on mech vent. Agitation: agitation reported by nurses when pt off sedation. Appears comfortable. * Palliative care will continue to follow to assist with symptom management and clarification of treatment goals. . Attestation To help prompt me to consider important information that might be impacting today's encounter and assessment, information from prior notes written by myself or my colleagues may have been "brought forward" into today's note. My signature on this note, however, is an attestation that I personally performed the exam, history, and/or decision-making noted today, and, unless otherwise indicated, the interactions with patient, family, and staff as well as the review of records all occurred today. I also attest that the listed assessment and stated plan reflect my best clinical judgment today based on the combination of historical information, prior notes, and today's exam/ interactions. When time spent is documented, it refers only to time spent today by the signer, or if indicated, combined time spent today by collaborating physician/nurse practitioner. FLO GARCIA Jul 12, 2016 12:16
[2016-07-12] MEDS ORDERED: BISACODYL 10 MG SUPP PR PRN (12:45)
[2016-07-12] MEDS ORDERED: LORazepam 2 MG/ML VIAL IVS PRN (12:45)
[2016-07-12] MEDS ORDERED: HYOSCYAMINE 0.5 MG/ML AMP IV PRN (12:45)
[2016-07-12] MEDS ORDERED: FUROSEMIDE 20 MG/2 ML VIAL IV PRN (12:45)
[2016-07-12] MEDS ORDERED: LORazepam 2 MG/ML VIAL IV PRN ×2 (12:45)
[2016-07-12] MEDS ORDERED: ACETAMINOPHEN 650 MG SUPP PR PRN (12:45)
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
[2016-07-12] MEDS ORDERED: LORazepam 2 MG/ML VIAL IV SCH (16:00)
[2016-07-12] MEDS ORDERED: MORPHINE SULFATE 8 MG/ML INJ IV PUSH SCH (16:00)
[2016-07-13] MEDS ORDERED: FUROSEMIDE 20 MG/2 ML VIAL IV PUSH SCH (09:00)
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
== END 2016-07-12 17:43 | disposition expired | DRG 28 ==
LOC: NEPI 13:06 → MERGE 13:23 → NEDA 13:23 → EDBD 13:23 → N03A 14:15
PROVIDERS: ADMIT Surgery; ATTEND Surgery
PROC: 5A1955Z Respiratory Ventilation, Greater than 96 Consecutive Hours (ICD-10-PCS; 2016-07-07)
PROC: 0RT30ZZ Resection of Cervical Vertebral Disc, Open Approach (ICD-10-PCS; 2016-07-07)
PROC: 0BH17EZ Insertion of Endotracheal Airway into Trachea, Via Natural or Artificial Opening (ICD-10-PCS; 2016-07-07)
PROC: 0W9930Z Drainage of Right Pleural Cavity with Drainage Device, Percutaneous Approach (ICD-10-PCS; 2016-07-07)
PROC: 0RG10A0 Fusion of Cervical Vertebral Joint with Interbody Fusion Device, Anterior Approach, Anterior Column, Open Approach (ICD-10-PCS; principal; 2016-07-07 11:13)
PROC: 0B21XEZ Change Endotracheal Airway in Trachea, External Approach (ICD-10-PCS; 2016-07-09)
PROC: 02H633Z Insertion of Infusion Device into Right Atrium, Percutaneous Approach (ICD-10-PCS; 2016-07-10)
DX: S14.153A Other incomplete lesion at C3 level of cervical spinal cord, initial encounter (principal); G82.52 Quadriplegia, C1-C4 incomplete; J95.821 Acute postprocedural respiratory failure; J44.9 Chronic obstructive pulmonary disease, unspecified; I50.22 Chronic systolic (congestive) heart failure; I13.0 Hypertensive heart and chronic kidney disease with heart failure and stage 1 through stage 4 chronic kidney disease, or unspecified chronic kidney disease; I42.9 Cardiomyopathy, unspecified; J93.83 Other pneumothorax; S14.154A Other incomplete lesion at C4 level of cervical spinal cord, initial encounter; S13.141A Dislocation of C3/C4 cervical vertebrae, initial encounter; E87.5 Hyperkalemia; I48.2 Chronic atrial fibrillation; N18.9 Chronic kidney disease, unspecified; I35.1 Nonrheumatic aortic (valve) insufficiency; M48.02 Spinal stenosis, cervical region; I77.810 Thoracic aortic ectasia; E78.5 Hyperlipidemia, unspecified; M45.9 Ankylosing spondylitis of unspecified sites in spine; R45.1 Restlessness and agitation; Z51.5 Encounter for palliative care; Z79.01 Long term (current) use of anticoagulants; Z85.828 Personal history of other malignant neoplasm of skin; Z86.73 Personal history of transient ischemic attack (TIA), and cerebral infarction without residual deficits; Z85.46 Personal history of malignant neoplasm of prostate; V43.52XA Car driver injured in collision with other type car in traffic accident, initial encounter
CPT/HCPCS: 31500; 36569; 70450; 71010; 71250; 72040; 72125; 72128; 72131; 72141; 72146; 72170; 73218; 74176; 76000; 76937; 80048; 80053; 82435; 82565; 82805; 82947; 82948; 83735; 84100; 84132; 84295; 84520; 85007; 85025; 85027; 85610; 85730; 86850; 86900; 86901; 93005; 93306; 94002; 94003; 94640; 94664; 96374; 99291; C1713; C1769; C9113; C9132; C9399; G0390; J0131; J0171; J0461; J0690; J1100; J1170; J1200; J1580; J1642; J1650; J1940; J1980; J2060; J2250; J2270; J2370; J2405; J2543; J2710; J3010; J3370; J3430; J3480; J7030; J7050; J7613; L0150; L0172